=== PATIENT | female | born 1985 | race Caucasian/White ===

== ENCOUNTER → 2018-06-03 11:30 | Outpatient (CLI) | payer MEDICAID, SELFPAY ==
[2018-06-03 10:18] VITALS: BMI 30.7
[2018-06-03 13:15] LABS: ALB/GLOB Ratio 1.1 RATIO (0.9-2.4); AST(SGOT) 24 U/L (15-37); Alanine Aminotransfer ALT/SGPT 35 U/L (13-56); Albumin, Serum 3.9 g/dL (3.2-5.0); Alkaline Phosphatase 60 U/L (45-117); Anion Gap 9 (5-15); BUN 11 mg/dL (7-18); BUN/Creat Ratio 14.4 RATIO (10-20); Calcium,Total 8.5 mg/dL (8.5-10.1); Chloride 104 mmol/L (98-107); Cholesterol 255 mg/dL (200); Creatinine, Serum 0.76 mg/dL (0.55-1.02); EST Glomerular Filtration Rate 93 mL/min (>60); Est Glom Filt Rate - Afr Amer 112 mL/min (>60); Free T3 2.5 pg/mL (2.18-3.98); Globulin 3.5 g/dL (2.2-4.2); Glucose 78 mg/dL (74-106); High Density Lipoprotein 55 mg/dL; Potassium 4.2 mmol/L (3.5-5.1); Protein, Total 7.4 g/dL (6.4-8.2); Sodium Level 140 mmol/L (136-145); Thyroid Stim Hormone (TSH) 2.72 uIU/mL (0.358-3.74); Triglycerides 109 mg/dL; Very Low Density Lipoprotein 22 mg/dL (5-40)
[2018-06-03 13:21] LABS: Hemoglobin A1c 4.8 % (4.2-6.3)
== END ==
PROVIDERS: Family Provider Internal Medicine; PCP Internal Medicine; Referring Provider Nurse Practitioner; Visit Provider Nurse Practitioner
DX: R53.82 Chronic fatigue, unspecified (principal); R53.81 Other malaise; E03.9 Hypothyroidism, unspecified
CPT/HCPCS: 36415; 80053; 80061; 83036; 84439; 84443; 84481

== ENCOUNTER → 2018-06-24 14:26 | Outpatient (CLI) | payer MEDICAID, SELFPAY ==
[2018-06-03 10:18] VITALS: BMI 30.7
--- NOTE | 2018-06-24 14:28 | US_ITS ---
STUDY: THYROID ULTRASOUND REASON FOR EXAM: Female, 32 years old. Difficulty swallowing TECHNIQUE: Ultrasound evaluation of the thyroid was performed with real-time and static polanco-scale imaging. COMPARISON: None. FINDINGS: RIGHT LOBE: The right lobe of the thyroid gland measures 4.2 x 1.2 x 1.4 cm. There is a homogeneous echotexture. There are no demonstrated solid, cystic or complex lesions. LEFT LOBE: The left lobe of the thyroid gland measures 2.9 x 1.2 x 1.1 cm. There is a homogeneous echotexture. There are no demonstrated solid, cystic or complex lesions. ISTHMUS: The isthmus measures 4 mm . The regional lymph nodes are normal. US/Thyroid IMPRESSION: Normal ultrasound examination of the thyroid. Electronically Signed: Radha Watson MD at 2:28 EST Tel , Service support ,
--- OUTSIDE RECORDS SUMMARY | 2018-09-26 06:51 | XMS RPT_ITS ---
:1985 Author Organization [facility] Care Team Providers Name Role Phone YANG ALLAN (BIOMEDICAL EQUIPMENT SPECIALIST) Referring Unavailable BRADY MERLOS Attending Unavailable BRADY MERLOS Attending Unavailable Antonia Crowe Attending Unavailable Antonia Crowe Admitting Unavailable Cristela Buenrostro BIOMEDICAL EQUIPMENT SPECIALIST-C Attending Unavailable Cristela Buenrostro BIOMEDICAL EQUIPMENT SPECIALIST-C Referring Unavailable [place]as, Traci Primary Care Unavailable ASSESSMENT, HEALTH RISK Attending Unavailable [place]as, Traci Primary Care Unavailable Cristela Buenrostro BIOMEDICAL EQUIPMENT SPECIALIST-C Attending Unavailable Talampas, Traci Referring Unavailable Cristela Buenrostro BIOMEDICAL EQUIPMENT SPECIALIST-C Attending Unavailable Cristela Buenrostro BIOMEDICAL EQUIPMENT SPECIALIST-C Referring Unavailable Talampas, Traci Primary Care Unavailable PROBLEMS PROBLEMS DATE TYPE CONDITION / CODE ATTENDING STATUS SOURCE 06/04/2018 Unknown E03.9 - Cristela Buenrostro Active [place] Hypothyroidism, BIOMEDICAL EQUIPMENT SPECIALIST-C Community unspecified / Hospital E03.9(ICD-10) Repository 06/04/2018 Unknown R53.82 - Chronic Cristela Buenrostro Active [place] fatigue, BIOMEDICAL EQUIPMENT SPECIALIST-C Community unspecified / Hospital R53.82(ICD-10) Repository 06/04/2018 Unknown R53.81 - Other Cristela Buenrostro Active [place] malaise / BIOMEDICAL EQUIPMENT SPECIALIST-C Community R53.81(ICD-10) Hospital Repository 11/16/2017 Active Pain in right NA Active [facility] / [facility] M25.521(ICD-10) Repository PROCEDURES PROCEDURES No Procedure Records FoundRESULTS RESULTS RUBELLA IGG [facility] Collected: 07/18/2018 Status: F Source: [place] [employer] 10:53 AM [facility] [place] CODE TESTS RESULT OUT OF RANGE REFERENCE UNITS LAB L509.4010 IU/mL Normal Rubella IgG 126.5 Result Comment: Antibody results Interpretation of Immune Status < 5 IU/ml Presumed Non-immune 5 - < 10 IU/ml Equivocal > or = 10 IU/ml Presumed Immune Performed By: #### L509.4010 #### [facility] [address] [place], [place], [address] [facility] EMP RUBEOLA Collected: 07/18/2018 Status: F Source: [place] 10:53 [facility] [place] CODE TESTS RESULT OUT OF RANGE REFERENCE UNITS LAB L3100.3400 Immune >29.9 AU/mL Normal RUBEOLA 183.0 Result Comment: Negative <25.0 Equivocal 25.0 - 29.9 Positive >29.9 Presence of antibodies to Rubeola is presumptive evidence of immunity except when acute infection is suspected. Performed at: - [facility] [address] [id number] Turntable Operator: Caleb Vuong PhD, Phone: [phone] Performed By: #### L3100.3400, L3400.0000, L3400.1750 #### [facility] (refer to report for specific site) refer to report for address and phone number V-ZOSTER IGG Collected: 07/18/2018 Status: F Source: [place] (IMMUNITY) 10:53 [facility] [place] CODE TESTS RESULT OUT OF RANGE REFERENCE UNITS LAB L3400.0000 Immune >165 index Normal VZOST IgG 1641 31182 Result Comment: Negative <135 Equivocal 135 - 165 Positive >165 A positive result generally indicates exposure to the pathogen or administration of specific immunoglobulins, but it is not indication of active infection or stage of disease. Performed By: #### L3100.3400, L3400.0000, L3400.1750 #### [facility] (refer to report for specific site) refer to report for address and phone number MUMPS ANTIBODY,IGG Collected: 07/18/2018 Status: F Source: [place] 10:53 AM [facility] [place] TYPE CODE TESTS RESULT OUT OF RANGE REFERENCE UNITS LAB L3400.1750 Immune >10.9 AU/mL Normal MUMPS,IgG 13.1 Result Comment: Negative <9.0 Equivocal 9.0 - 10.9 Positive >10.9 A positive result generally indicates past exposure to Mumps virus or previous vaccination. Performed By: #### L3100.3400, L3400.0000, L3400.1750 #### [facility] (refer to report for specific site) refer to report for address and phone number PROGRESS Observed: 06/27/2018 Status: COMPLETED Source: [place] 12:43 PM [facility] REPOSITORY HNO ID: [id number] Author: Eduardo Leon Service: (none) Author Type: Physician Type: Progress Notes Filed: 06/27/2018 12:53 PM Note Text: Patient presents with: Acute Visit: sore throat with cough fever AND congestion x 1 day HPI: Feeling sick since yesterday Positive symptoms: Cough, Sore throat, Fever, Shortness of breath, Chest tightness, Headache, Negative symptoms: OTC: Ibuprofen, Tylenol MEDICATIONS: Current Outpatient Prescriptions: ALPRAZolam (XANAX) 1 mg tablet Take 1 tablet by mouth twice daily as needed. ([facility]) BIOTIN ORAL Take by mouth. celecoxib (CELEBREX) 200 mg capsule Take 1 capsule by mouth once daily. cetirizine (ZYRTEC) 10 mg tablet Take 1 tablet by mouth once daily. DULoxetine (CYMBALTA) 60 mg capsule Take 60 mg by mouth once daily. fluticasone (FLONASE) 50 mcg/actuation nasal spray Use 2 Sprays in each nostril once daily. Rinse mouth after use. hydrocodone-acetaminophen 5-325 mg per tablet Take 1 tablet by mouth three times daily. [facility] (Patient taking differently: Take 1 tablet by mouth once daily. [facility]) lamoTRIgine (LAMICTAL) 150 mg tablet Take 1 tablet by mouth once daily. (replaced trileptal) (Patient taking differently: Take 200 mg by mouth once daily. (replaced trileptal)) levonorgestrel (MIRENA) 20 mcg/24 hr (5 years) IUD Inserted in office levothyroxine (SYNTHROID) 75 mcg tablet Take 1 tablet by mouth once daily. Take an extra 0.5 tablet on Sunday metFORMIN (GLUCOPHAGE) 500 mg tablet Take 1 tablet by mouth twice daily with meals. . mometasone (ELOCON) 0.1 % cream Apply 1 application to affected area once daily. in each ear for itching (Patient taking differently: Apply 1 application to affected area as needed. in each ear for itching) polyethylene glycol 3350 (MIRALAX, GLYCOLAX) 17 gram/dose powder Drink a mix of 1 scoop in 8oz of water/beverage once daily as needed for constipation. albuterol HFA (VENTOLIN HFA) 90 mcg/actuation inhaler Inhale 2 Puffs as instructed every 4 hours as needed for Wheezing/Shortness of Breath. azithromycin (ZITHROMAX Z-AMILCAR) 250 mg tablet Take 2 tablets by mouth day one, then 1 tablet daily until gone. buPROPion XL 150 mg 24 hr tablet Take 1 tablet by mouth once daily. ([facility]) No current facility-administered medications for this visit. ALLERGIES: ALLERGIES Allergen Reactions - Augmentin [Amoxicil* GI Upset - Seasonal Allergies Unknown Cats, dogs, dust mites, molds, trees, grasses, weeds, ragweed. VITALS: BP 118/86 Pulse 106 Temp 37.3 ?C (99.2 ?F) (Left Tympanic) Resp 16 Wt 82.5 kg (181 lb 12.8 oz) SpO2 99% BMI 30.72 kg/m? PHYSICAL EXAM: GEN: mildly ill appearing HEENT: PERRL, EOMI, conjunctiva clear Ears: canals clear, TMs without erythema, bulge, or effusion Sinuses: non-tender frontal sinus, non-tender maxillary sinuses Throat: moist mucous membranes, mild erythema, no exudate Neck: supple, no thyromegaly, no lymphadenopathy HEART: regular rate and rhythm, no murmurs LUNGS: clear to auscultation, no wheezes or crackles, no increased WOB ASSESSMENT/PLAN: 1. Sore throat - ICD9: 462, ICD10: J02.9 - RAPID STREP TEST B/O- negative - suspect viral URI - Discussed supportive care treatment with rest, cold medicine, and analgesia. Eduardo Leon MD CNOV Observed: 06/27/2018 Status: COMPLETED Source: [place] 12:30 PM [facility] REPOSITORY Office Visit (WSTR) ABDIAS BEARD ([id number]) 1985 F Date Time Provider Department 06/27/18 12:30 PM EDUARDO LEON WSTR During your visit today, we recorded the following information about you: Temperature Pulse Respiration Blood pressure 99.2 degrees 106/minute 16/minute 118/86 Weight 82.5 kg Eduardo Leon MD 06/27/2018 12:53 PM Signed Patient presents with: Acute Visit: sore throat with cough fever AND congestion x 1 day HPI: Feeling sick since yesterday Positive symptoms: Cough, Sore throat, Fever, Shortness of breath, Chest tightness, Headache, Negative symptoms: OTC: Ibuprofen, Tylenol MEDICATIONS: Current Outpatient Prescriptions: ALPRAZolam (XANAX) 1 mg tablet Take 1 tablet by mouth twice daily as needed. ([facility]) BIOTIN ORAL Take by mouth. celecoxib (CELEBREX) 200 mg capsule Take 1 capsule by mouth once daily. cetirizine (ZYRTEC) 10 mg tablet Take 1 tablet by mouth once daily. DULoxetine (CYMBALTA) 60 mg capsule Take 60 mg by mouth once daily. fluticasone (FLONASE) 50 mcg/actuation nasal spray Use 2 Sprays in each nostril once daily. Rinse mouth after use. hydrocodone-acetaminophen 5-325 mg per tablet Take 1 tablet by mouth three times daily. [facility] (Patient taking differently: Take 1 tablet by mouth once daily. [facility]) lamoTRIgine (LAMICTAL) 150 mg tablet Take 1 tablet by mouth once daily. (replaced trileptal) (Patient taking differently: Take 200 mg by mouth once daily. (replaced trileptal)) levonorgestrel (MIRENA) 20 mcg/24 hr (5 years) IUD Inserted in office levothyroxine (SYNTHROID) 75 mcg tablet Take 1 tablet by mouth once daily. Take an extra 0.5 tablet on Sunday metFORMIN (GLUCOPHAGE) 500 mg tablet Take 1 tablet by mouth twice daily with meals. . mometasone (ELOCON) 0.1 % cream Apply 1 application to affected area once daily. in each ear for itching (Patient taking differently: Apply 1 application to affected area as needed. in each ear for itching) polyethylene glycol 3350 (MIRALAX, GLYCOLAX) 17 gram/dose powder Drink a mix of 1 scoop in 8oz of water/beverage once daily as needed for constipation. albuterol HFA (VENTOLIN HFA) 90 mcg/actuation inhaler Inhale 2 Puffs as instructed every 4 hours as needed for Wheezing/Shortness of Breath. azithromycin (ZITHROMAX Z-AMILCAR) 250 mg tablet Take 2 tablets by mouth day one, then 1 tablet daily until gone. buPROPion XL 150 mg 24 hr tablet Take 1 tablet by mouth once daily. ([facility]) No current facility-administered medications for this visit. ALLERGIES: ALLERGIES Allergen Reactions - Augmentin [Amoxicil* GI Upset - Seasonal Allergies Unknown Cats, dogs, dust mites, molds, trees, grasses, weeds, ragweed. VITALS: BP 118/86 Pulse 106 Temp 37.3 ?C (99.2 ?F) (Left Tympanic) Resp 16 Wt 82.5 kg (181 lb 12.8 oz) SpO2 99% BMI 30.72 kg/m? PHYSICAL EXAM: GEN: mildly ill appearing HEENT: PERRL, EOMI, conjunctiva clear Ears: canals clear, TMs without erythema, bulge, or effusion Sinuses: non-tender frontal sinus, non-tender maxillary sinuses Throat: moist mucous membranes, mild erythema, no exudate Neck: supple, no thyromegaly, no lymphadenopathy HEART: regular rate and rhythm, no murmurs LUNGS: clear to auscultation, no wheezes or crackles, no increased WOB ASSESSMENT/PLAN: 1. Sore throat - ICD9: 462, ICD10: J02.9 - RAPID STREP TEST B/O- negative - suspect viral URI - Discussed supportive care treatment with rest, cold medicine, and analgesia. Eduardo Leon MD Referring Provider: SELF [200] Allergies As of Date: 06/27/2018 Noted Allergy Reaction AUGMENTIN (AMOXICILLIN-POT CLAVUL*05/21/2014 8 - GI Upset SEASONAL ALLERGIES 01/25/2012 16 - Unknown Comments: Cats, dogs, dust mites, molds, trees, grasses, weeds, ragweed. Date Reviewed: 06/27/2018 Reviewed by: Nenita Rayo Ma - Fully Assessed Reason for Visit: Acute Visit [896] Cmt: sore throat with cough fever AND congestion x 1 day Primary Visit Diagnosis:Sore throat [J02.9] Order(s):RAPID STREP TEST B/O [[id number]] Order #: [id number] Prescriptions as of 06/27/2018 Sig: ALPRAZOLAM 1 MG TABLET Take 1 tablet by mouth twice * BIOTIN ORAL Take by mouth. CELECOXIB 200 MG CAPSULE Take 1 capsule by mouth once * CETIRIZINE 10 MG TABLET Take 1 tablet by mouth once d* DULOXETINE 60 MG CAPSULE,ROSALIO* Take 60 mg by mouth once adrienne* FLUTICASONE 50 MCG/ACTUATION * Use 2 Sprays in each nostril * HYDROCODONE 5 MG-ACETAMINOPHE* Take 1 tablet by mouth three * Patient taking differently: Take 1 tablet by mouth once d* LAMOTRIGINE 150 MG TABLET Take 1 tablet by mouth once d* Patient taking differently: Take 200 mg by mouth once nataliya* LEVONORGESTREL 20 MCG/24 HR (* Inserted in office LEVOTHYROXINE 75 MCG TABLET Take 1 tablet by mouth once d* METFORMIN 500 MG TABLET Take 1 tablet by mouth twice * MOMETASONE 0.1 % TOPICAL CREAM Apply 1 application to affect* Patient taking differently: Apply 1 application to affect* POLYETHYLENE GLYCOL 3350 17 G* Drink a mix of 1 scoop in 8oz* ALBUTEROL SULFATE HFA 90 MCG/* Inhale 2 Puffs as instructed * AZITHROMYCIN 250 MG TABLET Take 2 tablets by mouth day o* BUPROPION XL 150 MG TAB Take 1 tablet by mouth once d* Problem List As Of Date 06/27/2018 Noted Resolved Unspecified Backache [M54.9] INVALID FOR* More... TENSION HEADACHE [G44.209] INVALID FOR* More... Anxiety State, Unspecified [F41.1] INVALID FOR* More... Unspecified sleep apnea [G47.30] INVALID FOR* More... OBESITY NOS [E66.9] INVALID FOR*05/28/2015 More... More... More... More... More... Depressive disorder, not elsewhere classified [*INVALID FOR*04/03/2012 More... More... Unspecified Essential Hypertension [I10] INVALID FOR*08/18/2013 More... More... More... Rectal bleeding [K62.5] 04/13/2016 Bipolar disorder, now depressed [F31.30] INVALID FOR* Goiter [E04.9] INVALID FOR* ASCUS favoring benign [IPX8731] INVALID FOR* Bipolar affective disorder [F31.9] INVALID FOR* Dysmetabolic syndrome [E88.81] INVALID FOR* Exercise-induced asthma [J45.990] Acquired hypothyroidism [E03.9] INVALID FOR* Acne [L70.9] INVALID FOR* PCOS (polycystic ovarian syndrome) [E28.2] INVALID FOR* Encounter Status:Closed by EDUARDO LEON MD on 06/27/18 THYROID Observed: 06/24/2018 Status: F Source: [place] 2:28 PM [facility] [place] [facility] [address] [place] [id number] Thyroid MR#: [id number] Acct: [id number] Name: ABDIAS BEARD Lara Rep #: [id number] : 1985 F 32 From: Radha Watson MD PCP: Traci Smith MD Status: REG CLI Study: Thyroid Date of Exam: 06/24/18 Exam# [id number] Ordering Dr: Cristela BuenrostroC STUDY: THYROID ULTRASOUND REASON FOR EXAM: Female, 32 years old. Difficulty swallowing TECHNIQUE: Ultrasound evaluation of the thyroid was performed with real-time and static polanco-scale imaging. COMPARISON: None. FINDINGS: RIGHT LOBE: The right lobe of the thyroid gland measures 4.2 x 1.2 x 1.4 cm. There is a homogeneous echotexture. There are no demonstrated solid, cystic or complex lesions. LEFT LOBE: The left lobe of the thyroid gland measures 2.9 x 1.2 x 1.1 cm. There is a homogeneous echotexture. There are no demonstrated solid, cystic or complex lesions. ISTHMUS: The isthmus measures 4 mm . The regional lymph nodes are normal. US/Thyroid IMPRESSION: Normal ultrasound examination of the thyroid. Electronically Signed: Radha Watson MD at 2:28 EST Tel , Service support , CC: Cristela Buenrostro NP; Traci Smith MD Sales Operations: Signed OFFICE VISIT REPORT Observed: 06/03/2018 Status: F Source: [place] 12:[address] [place] [address] OFFICE VISIT Date of Service: 06/03/18 MR#: [id number] Acct: [id number] Patient: ABDIAS BEARD Rep #: [id number] : 1985 Provider: Cristela Buenrostro NP Age/Sex: 32/F Location: [facility] [place] Status: Signed Intake Vital Signs06/03/18 Height 5 ft 4.5 in 06/03/18 Weight: 182 lb 06/03/18 Body Mass Index (BMI) 30.7 06/03/18 Blood Pressure 127/88 H 06/03/18 Blood Pressure Location Lt popliteal 06/03/18 Blood Pressure Position Sitting Intake Visit Reasons: Thyroid dysfunction Audit Senior Associate Required: No Accompanied by: Self Allergies No Known Allergies Allergy (Unverified 06/03/18 10:05) Medications celecoxib 200 mg capsule 200 mg PO DAILY 06/03/18 [History Confirmed 06/03/18] duloxetine 60 mg capsule,delayed release 90 mg PO DAILY cap 06/03/18 [History Confirmed 06/03/18] lamotrigine 100 mg tablet 100 mg PO DAILY 06/03/18 [History Confirmed 06/03/18] levothyroxine 75 mcg tablet See Rx Instructions PO .COMPLEX #32 tab 06/03/18 [Rx Confirmed 06/03/18] metformin 500 mg tablet 500 mg PO BID #150 tab 06/03/18 [Rx Confirmed 06/03/18] PFSH Medical History Anxiety and depression (Acute) Back problem (Acute) Hypothyroidism (Acute) Insulin resistance (Acute) Polycystic ovary (Acute) Seasonal allergies (Acute) HTN (hypertension) (Chronic) Surgical History H/O oral surgery (Acute) Family History Unknown Asthma Diabetes Hypertension High cholesterol hormone problems Social History Smoking Status: Never smoker alcohol intake: never substance use type: does not use Questionnaire Depression Screen PHQ-2/9 PHQ-2 Over the last 2 weeks, how often have you been bothered by any of the following problems? 1. Little interest or pleasure in doing things: several days 2. Feeling down, depressed, or hopeless: several days Total score: 2 If score is 2 or greater, continue 3. Trouble falling or staying asleep, or sleeping too much: nearly every day 4. Feeling tired or having little energy: more than half the days 5. Poor appetite or overeating: not at all 6. Feeling bad about yourself - or that you are a failure or have let yourself and your family down: several days 7. Trouble concentrating on things, such as reading the newspaper or watching television: not at all 8. Moving or speaking so slowly that other people could have noticed? - Or the opposite - being so fidgety or restless that you have been moving around a lot more than usual: several days 9. Thoughts that you would be better off or of hurting yourself in some way: not at all Total score: 9 If you checked off any problems, how difficult have these problems made it for you to do your work, take care of things at home, or get along with other people?: somewhat difficult Source: Developed by Drs. Gustabo Kaiser, Jossie Flower, Domo Núñez and colleagues, with an educational lois from [employer]. Scoring: Total Score Depression Severity Action 1-4 Minimal depression No action needed 5-9 Mild depression Repeat PHQ-9 at follow up 10-14 Moderate depression Make tx plan,consider counseling, fup, prescription HPI HPI Details: ABDIAS BEARD, is a 32 F who presents to the office today for consult of hypothyroidism and PCOS. Diagnosed in 2011. Continues on levothyroxine 75 mcg daily. Takes each day. Does not miss any doses nor does she take within 4 hours of calcium, iron, or vitamins. Does admit she has fatigue and malaise. Also treated for PCOS. Ran out of metformin. Reports she finds more severe acne when she is not taking her metformin. Severity, modifying factors, context, and associated signs and symptoms are as follows: Thyroid pain: No Energy: Reduced Sleep: Not awakened refreshed Temp: No intolerance GI: Normal bowel Weight: Flucuates Eyes: No change in vision Memory: unchanged Diaphoresis: Not significant Skin: Dry Hair : Unchanged Neuro: No numbness, tingling or tremors Difficulty swallowing solid foods. At time of visit: -Pt denies symptoms of hypertensive emergency (CP,SOB,SERRANO, or blurred vision) and hypotension(dizziness or lightheadedness) -Pt denies symptoms of hyperthyroidism ( sweaty, confusion, anxiety, tremor, hunger, palpitations) and hyperglycemia ( polydipsia, polyuria) -Pt denies potential medication adverse effect. ROS Const Constitutional: Positive for fatigue; no anorexia, body ache, chills, fever(s), frequent falls, decreased energy, malaise, night sweats, weakness, weight change, sleep problems, abnormal sleep pattern, change in appetite, other, headache(s), snoring or excessive sweating Eyes Eyes: No blurry vision, change in vision, double vision, discharge, dry eyes, bulging eyes, floaters, visual disturbances, eye pain, light sensitivity, spots in vision, tunnel vision or other ENT ENT: No abnormal hearing, ear pain, ear discharge, ear pressure, hearing loss, tinnitus, dizziness/vertigo, balance problems, nosebleed/epistaxis, nasal congestion, nasal obstruction, nose pain, sinus pressure, sinus pain, nasal discharge, post nasal drip, headache(s), facial pain, dental pain, dry mouth, bad breath, hoarseness, lip swelling, mouth lesions, mouth pain, sore throat, tongue swelling, throat swelling, other, difficulty swallowing or neck pain Resp Respiratory: No cough, change in phlegm color, chest congestion, excessive phlegm production, hemoptysis, pain on inspiration, shortness of breath, pain with cough, snoring, stridor, wheezing or other Cardio Cardiology: No chest pain at rest, chest pain with exertion, leg pain with exertion, excessive sweating, shortness of breath, dyspnea on exertion, generalized swelling, irregular heart rhythm, lightheadedness, orthopnea, radiating jaw, neck or arm pain, fast heart rate, slow heart rate, palpitations or other Gastro GI: No abdominal pain, belching, bloating, change in bowel habits, change in stool character, coffee ground emesis, constipation, cramping, diarrhea, heartburn, difficulty swallowing, feeling full early, excessive flatus, incontinent of stools, Vomiting blood/hematemesis, blood in stool, loose stools, Black,tarry stools, nausea/dyspepsia, pain with swallowing, vomiting or other Genitourinary-Female: No difficulty urinating, burning urination, painful urination, urinary incontinence, urinary frequency, urinary urgency, urinary hesitancy, urinary retention, blood in urine, Frequent nighttime urination/ nocturia, post void dribbling, suprapubic fullness, side pain, sexual problems, genital lesions, genital itching, hot flashes, abnormal periods, abnormal vaginal bleeding, absent period, painful periods, light periods, heavy periods, difficulty getting , painful intercourse, pelvic pain, vaginal dryness, vaginal odor, Vaginal Itching or other Musc Musculoskeletal: No abnormal walking, joint pain, back pain, deformity, joint swelling, limited range of motion, loss of height, muscle cramps, muscle weakness, decreased muscle mass, body aches, neck pain, numbness, radiating pain into limb, stiffness, tingling or other Skin Skin: No acne, hair loss, change in hair, nail changes, boil, change in skin color, dry skin, redness, excessive hair growth, yellowing of the skin, lesions, itching, rash, skin pain, skin ulcer, sores, skin swelling, wounds or other Breast Breast: No other Neuro Neurology: No frequent falls, weakness, visual disturbances, abnormal hearing, headache(s), abnormal walking, numbness or tingling Psych Psychiatric: No abnormal sleep pattern, No change in appetite Endo Endocrine: Positive for fatigue; no other or excessive sweating Aller/Imm Allergy/Immunologic: No lip swelling, tongue swelling, throat swelling, wheezing or itchy eyes Exam Const General: comfortable, no acute distress Nutritional Appearance: well nourished Orientation: oriented x3 [facility] Head: normal to inspection, atraumatic Ears: hearing grossly normal bilaterally Nose: external nose normal Face and sinus: normal facial exam Mouth: moist mucous membranes Teeth and gingiva: dentition normal Eyes General: appearance normal, both eyes and all related structures Visual Preciado: normal visual preciado by confrontation Eyelids: eyelids normal Conjunctivae: conjunctivae normal Sclera: sclerae normal Pupils: PERRL Neck Neck: normal visual inspection, full ROM Neck mass: No Thyroid: thyroid normal Resp Effort AND Inspection: normal respiratory effort, able to speak in complete sentences, symmetric chest movement Auscultation: Bilateral: Clear to Auscultation Cardio Rate: regular rate Rhythm: regular rhythm Heart Sounds: S1 normal, S2 normal, no murmurs GI Inspection: normal to inspection Auscultation: normal bowel sounds Palpation: soft, no guarding Musc Musculoskeletal: No muscle weakness Skin General: no rashes or lesions noted Wounds: no wounds Neuro General: oriented x3, moves all extremities Cognition: normal cognition Speech: speech normal Gait: normal gait Motor: muscle tone normal throughout Extrem General: normal capillary refill, full ROM, normal to inspection, no edema Psych Appearance: grossly normal, well kempt Mental Status: mental status grossly normal Mood: congruent mood Affect: normal affect Speech and Movement: speech and movement normal Attitude: cooperative Thought Process: normal Thought Content: normal Judgment: judgment good Assessment AND Plan 1. Hypothyroidism (acquired) E03.9 Plan Will update labs and reorder medication. Due to complaints of swallowing difficulty will order thyroid US. RTC 1 year. Orders Orders: Medications Refilled: 2. Chronic fatigue and malaise R53.82; R53.81 Plan Having some issues will unusual level of fatigue and malaise. Feels diet is good. Sleep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
== END ==
PROVIDERS: Family Provider Internal Medicine; PCP Internal Medicine; Referring Provider Nurse Practitioner; Visit Provider Nurse Practitioner
DX: E03.9 Hypothyroidism, unspecified (principal)
CPT/HCPCS: 76536

== ENCOUNTER 2018-08-08 13:19 | Emergency (ER) | payer MEDICAID, SELFPAY ==
[2018-06-03 10:18] VITALS: BMI 30.7
[2018-08-08 13:21] VITALS: BP 152/113; PULSE 103; RESP 15; TEMP 37; O2SAT 99
--- NOTE | 2018-08-08 13:51 | EKG12_ITS ---
Test Reason : CP Blood Pressure : / mmHG Vent. Rate : 104 BPM Atrial Rate : 104 BPM P-R Int : 140 ms QRS Dur : 074 ms QT Int : 346 ms P-R-T Axes : 037 000 019 degrees QTc Int : 454 ms Sinus tachycardia Otherwise normal ECG Confirmed by ALISIA MACDONALD, KORY ([id number]), industrial editor JAZZ WELLS ([id number] on 08/13/2018 8:35:26 AM Referred By: BLAYNE Confirmed By:KORY CRUMP MD
[2018-08-08 14:15] LABS: Absolute Lymphocyte Count 2.08 X10^3/ul (0.83-4.51); Absolute Neutrophil Count 5.7 X10^3/uL (2.0-7.7); Basophil# 0.04 X10^3/uL; Basophil% 0.5 % (0-1); Eosinophils% 2.4 % (0-5); Hematocrit 43.1 % (37-47); Hemoglobin 14.1 g/dl (12.0-15.0); Lymphocyte # 2.08 X10^3/ul (4.0); Lymphocyte % 24.9 % (19-41); Mean Corp Hgb Conc 32.7 g/gl (32-36); Mean Corpuscular Hgb 30.3 pg (27.0-32.0); Mean Corpuscular Volume 92.5 fL (81-99); Mean Platelet Vol. 9.7 fl (6.2-12.0); Monocyte# 0.38 X10^3/uL; Monocyte% 4.5 % (0-10); Neutrophil # 5.66 X10^3/uL (2.7-7.7); Neutrophil % 67.6 % (47-70); Platelet Count 306 K/mm3 (150-450); RBC Distribution Width CV 11.8 % (11.6-14.6); RBC Distribution Width SD 39.3 fl (35.1-43.9); Red Blood Count 4.66 M/mm3 (4.2-5.4); White Blood Count 8.4 K/mm3 (4.4-11.0)
--- NOTE | 2018-08-08 14:16 | RAD_ITS ---
STUDY: X-RAY CHEST REASON FOR EXAM: Female, 32 years old. Chest pain. TECHNIQUE: Single AP portable view of the chest. COMPARISON: None. FINDINGS: EKG electrodes are seen. The lungs are clear and expanded. There is no demonstrated pleural abnormality. Normal size heart. Normal mediastinum and pamela. Normal visualized pulmonary arteries. Normal visualized aortic arch and descending thoracic aorta. Normal visualized thoracic spine. Normal visualized ribs, clavicles, and shoulders. There is no demonstrated abnormality of the visualized soft tissue structures of the upper abdomen. RAD/Chest 1 View (Portable) IMPRESSION: Normal x-ray examination of the chest. Electronically Signed: Leandro Vincent MD at 14:32 EST , Service support ,
[2018-08-08 14:20] LABS: POSITIVE COUNT NO; POSITIVE DIFFERENTIAL NO; POSITIVE MORPHOLOGY NO
--- NOTE | 2018-08-08 14:24 | ED.DCSUM_ITS ---
- ER Visit Summary Date of Service: 08/08/18 Chief Complaint: [] Chest tightness for 2 days History of Present Illness: The patient is a 32 F [] intermittent chest tightness for 2 days the etiology of which is unclear, no fever no cough she did really does not described as a pain she is able to exert herself and does not cause pain she has no shortness of breath fever cough the pain is intermittent cannot really describe how long it lasts it goes away on its own she is currently not having any symptoms. She does report a history of hypothyroidism pain for which she takes Celebrex and MS Contin and anxiety depression, no history of MO PE or DVT no immobility no history of any cardiopulmonary disorde rs Physical Examination: [] Her vital signs are all within normal range pulse ox is 98% on room air she is afebrile General, no distress resting comfortably HEENT is generally unremarkable The neck is supple no adenopathy Cardiovascular, regular rate and rhythm Lungs, clear bilateral Abdomen, soft nontender Extremities, no clubbing cyanosis or edema Neurologic, awake alert answering questions appropriately moving all 4 extremities Test Results: [] Emergency Department Course and Treatment: [] she looks well with no findings on physical exam she is lying almost flat in the bed without symptoms, her EKG shows a sinus rhythm heart rate 104 no acute injury pattern given her complaints screening labs d-dimer chest x-ray Treatment Plan: [] Patient screening labs include d-dimer are generally unremarkable as is the chest x-ray explained test results to her, the fact that the exact etiology of her symptoms are unclear and she is follow with her outpatient providers she will going obtain that she is currently on MS Contin and other pain management occasions she will continue that consider using antacids proton pump inhibitors etc. return for change in symptoms she is comp with this plan Disposition: [] Home stable Impression: [] Chest tightness etiology unclear This note was generated with [employer] dictation software. It may contain incorrect words, spelling, and punctuation that were not noted in review of the chart prior to signing ED Disposition - Plan for ED Patient: Referrals: Traci Smith MD [Primary Care Provider] -
[2018-08-08 14:30] LABS: Anion Gap 8 (5-15); BUN 11 mg/dL (7-18); BUN/Creat Ratio 15.2 RATIO (10-20); Calcium,Total 8.5 mg/dL (8.5-10.1); Chloride 106 mmol/L (98-107); Creatinine, Serum 0.72 mg/dL (0.55-1.02); EST Glomerular Filtration Rate 99 mL/min (>60); Est Glom Filt Rate - Afr Amer 119 mL/min (>60); Estimated Creatinine Clearance 96.86 ml/min; Glucose 93 mg/dL (74-106); Sodium Level 139 mmol/L (136-145)
[2018-08-08 14:32] LABS: D-Dimer Quantitative (DVT/PE) < 0.27 FEU/ug/m (0.27-0.49)
[2018-08-08 14:39] VITALS: PULSE 99; RESP 16
[2018-08-08] MEDS: Ipratropium/Albuterol Sulfate 3 ML AMPUL.NEB INHALATION (14:39)
[2018-08-08] MEDS: Mag Hydrox/Al Hydrox/Simeth 30 ML UDC PO (14:49)
[2018-08-08 14:51] LABS: BNP,B-Type NATRIURETIC PEPTIDE 11.6 pg/mL (0-100)
--- NOTE | 2018-08-08 15:06 | ED.DEP ---
ED Disposition - Plan for ED Patient: Instructions: ED Chest Pain Atypical Unkn Cause Referrals: Traci Smith MD [Primary Care Provider] - Additional Instructions: Follow-up with all of your outpatient providers return for change in symptoms Consider using antacid type medicines
[2018-08-08 15:19] LABS: Pregnancy, Serum, hCG Quali. NEGATIVE Negative (0-9 Nonpreg)
[2018-08-08 15:53] VITALS: BP 129/90; PULSE 84; RESP 18; O2SAT 99
== END 2018-08-08 15:54 | disposition home or self-care (01) ==
LOC: ED 14:09
PROVIDERS: Emergency Provider Emergency Medicine; Family Provider Internal Medicine; PCP Internal Medicine
DX: R07.89 Other chest pain (principal); E03.9 Hypothyroidism, unspecified; Z79.899 Other long term (current) drug therapy
CPT/HCPCS: 71045; 80048; 83880; 84484; 84703; 85025; 85379; 93005; 94640; 99285; A4216; J2405

== ENCOUNTER → 2021-03-15 | Outpatient (CLI) | payer OTHER, MEDICAID, SELFPAY ==
[2021-03-15 12:18] LABS: Probe Check BNP
== END | disposition home or self-care (01) ==
PROVIDERS: PCP Internal Medicine; Visit Provider Otolaryngology Otolaryngology/Facial Plastic Surgery
DX: Z03.818 Encounter for observation for suspected exposure to other biological agents ruled out (principal); Z11.59 Encounter for screening for other viral diseases
CPT/HCPCS: 87635; U0005; U0003

== ENCOUNTER → 2021-03-22 | Outpatient (CLI) | payer OTHER, MEDICAID, SELFPAY | END | disposition home or self-care (01) | LOC: LABSPEC 16:43 | PROVIDERS: PCP Internal Medicine; Referring Provider Otolaryngology; Visit Provider Otolaryngology | DX: J02.9 Acute pharyngitis, unspecified (principal) | CPT/HCPCS: 87070 ==

== ENCOUNTER → 2021-03-24 | Outpatient (CLI) | payer OTHER, MEDICAID, SELFPAY | END | disposition home or self-care (01) | LOC: LABSPEC 03-25 11:37 | PROVIDERS: PCP Internal Medicine; Referring Provider Otolaryngology; Visit Provider Otolaryngology | DX: Z11.59 Encounter for screening for other viral diseases (principal); Z03.818 Encounter for observation for suspected exposure to other biological agents ruled out | CPT/HCPCS: 87635; U0005; U0003 ==

== ENCOUNTER 2023-02-04 10:49 | Emergency (ER) | payer MEDICAID, SELFPAY ==
[2023-02-04 10:51] VITALS: BP 124/96; PULSE 102; RESP 16; TEMP 35.9; O2SAT 98; BMI 24.2
--- NOTE | 2023-02-04 10:54 | EKG12_ITS ---
Test Reason : SYNCOPE Blood Pressure : / mmHG Vent. Rate : 102 BPM Atrial Rate : 102 BPM P-R Int : 120 ms QRS Dur : 074 ms QT Int : 328 ms P-R-T Axes : 039 045 050 degrees QTc Int : 427 ms Sinus tachycardia Otherwise normal ECG Confirmed by CYRIL MACDONALD, KARMEN ([id number]), writer editor ESTHER RUSHING ([id number]) on 02/08/2023 8:35:21 AM Referred By: Confirmed By:NEELAM NAM MD
--- NOTE | 2023-02-04 10:54 | EX.ED.DYSGE1 ---
HPI History of Present Illness Chief Complaint: Syncope [facility] Medical History (Updated 02/04/23 @ 11:[address] Luis Reilly, DO) Anxiety and depression Back problem HTN (hypertension) Hypothyroidism Insulin resistance Polycystic ovary Seasonal allergies Home Medications celecoxib 200 mg capsule (Celebrex) 200 mg PO DAILY 06/03/18 [History Last Taken Unknown] duloxetine 60 mg capsule,delayed release (Cymbalta) 90 mg PO DAILY 06/03/18 [History Last Taken Unknown] lamotrigine 100 mg tablet 100 mg PO DAILY 06/03/18 [History Last Taken Unknown] levothyroxine 75 mcg tablet See Rx Instructions PO .COMPLEX #32 tabs 06/03/18 [Rx Last Taken Unknown] metformin 500 mg tablet 500 mg PO .COMPLEX #150 tabs 06/26/18 [Rx Last Taken Unknown] alprazolam 1 mg tablet (Xanax) 1 mg PO BID PRN PRN Anxiety 08/08/18 [History Last Taken Unknown] morphine 15 mg tablet,extended release 15 mg PO TID 08/08/18 [History Last Taken Unknown] tizanidine 4 mg capsule (Zanaflex) 4 mg PO QHS 08/08/18 [History Last Taken Unknown] Allergy/AdvReac Type Severity Reaction Status Date / Time No Known Allergies Allergy Unverified 08/08/18 13:24 Family History (Updated 06/03/18 @ 10:09 by Stacey Duenas) Unknown Asthma Diabetes Hypertension High cholesterol hormone problems Surgical History (Updated 06/03/18 @ 10:08 by Stacey Duenas) H/O oral surgery Social History (Updated 01/20/19 @ 14:33 by Henry STEPHEN, PA) Smoking Status: Never smoker alcohol intake: never substance use type: does not use EXAM Physical Exam Const Vital Signs: 02/04/23 10:51 Temperature 96.7 F L Temperature Source Temporal Pulse Rate 102 H Respiratory Rate 16 Blood Pressure 124/96 H Blood Pressure Mean 105 Pulse Ox 98 Oxygen Delivery Method Room Air MDM MDM MDM Narrative Medical decision making narrative: HISTORY OF PRESENT ILLNESS: 37-year-old female here with concern for loss of consciousness. She states she passed out last Sunday after seeing a laceration on her finger. She notes she then felt hot, warm dizzy and lost consciousness. Does note hitting her neck on a counter. This occurred 4 days ago. Denies any focal weakness or numbness. Denies any vomiting. Denies being intoxicated at the time of fall. Denies any tongue biting or convulsions. Denies any bowel or bladder incontinence. She does note neck pain. The patient denies recent surgery in the last 4 weeks or immobilization in the last 3 days, denies previous diagnosis of DVT or PE, hemoptysis, unilateral leg swelling or malignancy with treatment the last 6 months. No estrogen use noted. Patient denies sudden onset of pain, no tearing sensation, no migratory symptoms, no new numbness, weakness or loss of sensation. Patient denies family history or personal history of Marfan syndrome or Rubi-Danlos Patient denies abdominal pain. Patient denies headache. Patient denies sudden onset or thunderclap headache, denies maximal intensity within 1 minute, vomiting, neck pain or stiffness, changes in vision, fever, history malignancy, syncope, seizures. No volume loss noted. No bleeding diathesis noted. REVIEW OF SYSTEMS: Pertinent positives: Loss of consciousness, neck pain after fall Pertinent negatives: Headache, chest pain, abdominal pain, vaginal bleeding, focal loss sensation weakness or numbness. PHYSICAL EXAM: Nursing triage notes reviewed, Vital signs reviewed Constitutional: please see mdm HENT: MMM Eyes: Pupils equal round and reactive to light, Extraocular muscles intact Neck: No stridor, no JVD, full neck ROM, no cervical spine step-offs deformities, TTP over left trapezius. Lungs: Clear to auscultation, No wheezing or rales. No increased work of breathing, no conversational dyspnea, no accessory muscle use, no nasal flaring. No respiratory distress noted Heart: Regular rate and rhythm, No murmurs, No rubs and No gallops, 2+ distal pulses (radial, femoral, posterior tibial) in all extremities Abdomen: Soft, there is no tenderness, rigidity, rebound or guarding, no obvious peritoneal signs, no palpable pulsatile abdominal masses, no auscultated abdominal bruit : No CVAT Extremities: No edema Neuro: Alert and oriented x3, neuro exam at baseline, cranial nerves II through XII are intact. No pain with extraocular muscle movement. There is negative test of skew. Normal speech. 5 of 5 strength in upper and lower extremities in flexion extension. Intact sensation to light touch in upper and lower extremity dermatomes. No truncal or extremity ataxia. No dysdiadochokinesia. Normal gait. 2+ reflexes. No meningeal signs. Negative Babinski. NIH of 0. Intact 5/5 strength with ok sign (median), intact finger abduction (ulnar) intact wrist extension (radial n). Intact sensation in the radial, ulnar, and median nerve distributions. Skin: No rash or lesions noted MEDICAL DECISION MAKING: Chief Complaint: Loss of consciousness External records reviewed:No recent cardiac catheterizations, stress test, echocardiogram and Holter monitor as noted in her chart Factors affecting care: Anxiety, hypothyroidism Social determinants of health: Never smoker History obtained from others: none Consults: none ALL IMAGES (IF OBTAINED) HAVE BEEN PERSONALLY REVIEWED AND INTERPRETED BY MYSELF. EKG with normal sinus rhythm, normal axis, normal intervals, no ST or T wave changes to suggest ischemia. No evidence of WPW, Brugada, ARVD. MDM Narrative: Patient was hemodynamically stable, afebrile, nontoxic-appearing. No focal neurologic deficits. No cervical spine step-offs or deformities. Heart and lung exam was unremarkable. Pulse exam was intact. There is no focal neurologic deficit present, no midline spinal tenderness, no altered level conscious, no intoxication, no distracting injury. Next criteria suggest no need for advanced imaging of the cervical spine. I considered the following differential diagnosis: Vasovagal syncope, arrhythmia, myocardial ischemia, electrolyte abnormality severe anemia, subarachnoid hemorrhage, ectopic , pulmonary embolism, aortic dissection, ruptured AAA EKG showed normal sinus rhythm, normal axis, normal intervals, no STEMI, no signs of dye PW, ARVD or Brugada syndrome. Patient had no bleeding diathesis. No report of volume loss. She had no reported family history of cardiovascular issues. Her syncope was likely vasovagal given she saw blood and had pain and felt warm dizzy. She had no signs or history to suggest seizure with no bowel or bladder incontinence or tongue biting. Patient is appropriate for discharge home with close outpatient follow-up for outpatient echocardiogram and potentially Holter monitor. The patient and/or family, caregivers express understanding. The patient and/or family, caregivers agrees with the plan. Shared decision making: I will have a discussion with the patient and or visitors regarding risk/benefits of further testing or admission. They will be made aware of of the risk/benefits inherent in this decision they will be given the opportunity to voice understanding. Total critical care time today provided was at least 0 minutes. This excludes separately billable procedures. Critical care time (if documented) is secondary to the patient having high probability of clinically significant/life threatening deterioration in the patient's condition which required my urgent intervention. Discharge Plan Triage Chief Complaint: Syncope ED Provider: Luis Reilly Dx/Rx/DC Orders Clinical Impression: Vasovagal syncope, Neck strain Prescriptions: No Action duloxetine [Cymbalta] 60 mg capsule,delayed release(DR/EC) 90 mg PO DAILY celecoxib [Celebrex] 200 mg capsule 200 mg PO DAILY lamotrigine 100 mg tablet 100 mg PO DAILY levothyroxine 75 mcg tablet See Rx Instructions PO .COMPLEX Qty: 32 11RF Dose Instruction: 1 tab daily for 6 days and on 7th day take 1.5 tab PO ; Rx Instructions: 1 tab daily for 6 days and on 7th day take 1.5 tab PO ; metformin 500 mg tablet 500 mg PO .COMPLEX Qty: 150 6RF Rx Instructions: Take one tablet in am and take 2 tablets in pm; alprazolam [Xanax] 1 MG tablet 1 mg PO BID PRN PRN (Reason: Anxiety) morphine 15 MG tablet 15 mg PO TID tizanidine [Zanaflex] 4 MG capsule 4 mg PO QHS Primary Care Provider: Traci Smith Referrals: Traci Smith MD [Primary Care Provider] - Activity Restrictions/Additional Instructions: Thank you for trusting us with your care today! Please take Tylenol (2 pills, 650 mg), ibuprofen (2 pills, 400 mg) every 6 hours as needed for pain and fever control. Please return to the emergency department if your symptoms change or worsen. Specifically if you lose consciousness, develop chest pain, if you feel your heart racing, you short of breath, you develop focal numbness or weakness. Please follow with your primary care physician for further outpatient evaluation and management. Disposition Disposition: Home, Self Care
[2023-02-04 11:32] VITALS: PULSE 85; RESP 18; O2SAT 98
== END 2023-02-04 11:41 | disposition home or self-care (01) ==
LOC: ED 11:38
PROVIDERS: Emergency Provider Emergency Medicine; PCP Internal Medicine; Visit Provider Emergency Medicine
DX: R55 Syncope and collapse (principal); E03.9 Hypothyroidism, unspecified; S16.1XXA Strain of muscle, fascia and tendon at neck level, initial encounter; I10 Essential (primary) hypertension; F41.8 Other specified anxiety disorders; W18.39XA Other fall on same level, initial encounter
CPT/HCPCS: 93005; 99282

== ENCOUNTER 2024-06-12 10:28 | Emergency (ER) | payer OTHER, SELFPAY ==
[2024-06-12 10:28] VITALS: BP 143/83; PULSE 94; RESP 18; TEMP 36.3; O2SAT 98; BMI 29.8
--- NOTE | 2024-06-12 10:43 | CT_ITS ---
STUDY: CT CERVICAL SPINE WITHOUT CONTRAST REASON FOR EXAM: Female, 38 years old. Neck pain hx of ACDF RADIATION DOSAGE (If Supplied By Facility): CTDIvol = ( 19.09 ) mGy, DLP = ( 411.10 ) mGycm TECHNIQUE: High resolution transaxial imaging was performed without contrast material. Sagittal and coronal images were reconstructed. Individualized dose optimization techniques were used for this CT. COMPARISON: None FINDINGS: Normal craniovertebral junction. Normal anterior atlantoaxial articulation. Normal odontoid process. There is straightening of the normal cervical lordosis. Normal vertebral bodies and posterior osseous elements. C2-3: Normal endplates. Normal disc height and morphology. Normal central canal and intervertebral neuroforamina. C3-4: Normal endplates. Normal disc height and morphology. Normal central canal and intervertebral neuroforamina. C4-5: Mild degree of anterior spondylolisthesis. C5-6: The patient is status post anterior fusion and prosthetic disc placement. C6-7: Normal endplates. Normal disc height and morphology. Normal central canal and intervertebral neuroforamina. C7-T1: Normal endplates. Normal disc height and morphology. Normal central canal and intervertebral neuroforamina. Normal visualized soft tissue structures. CT/Spine Cervical without Contras IMPRESSION: Status post anterior fusion and prosthetic disc placement at the C5-C6 level. Mild degree of anterior spondylolisthesis at the C4-C5 level. Electronically Signed: Leandro Vincent MD at 12:01 EST ,
--- NOTE | 2024-06-12 10:45 | EX.ED.DYSGE1 ---
HPI History of Present Illness Chief Complaint: Other, Pain/Inj Narrative Narrative: Patient is a 38-year-old female with past medical history hypertension, hypothyroidism, anxiety, depression, history of ACDF last May who presents to the emergency department the chief complaint of neck pain. Patient states that she follows with pain management and has been given tizanidine, gabapentin she is on also taking Tylenol ibuprofen without any relief. Patient denies any injuries to her neck to cause a flare. States that this pain has been going on for a some amount of time however today she noted that it was worse. 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 Patient denies any history of IV drug use, denies any alcohol use. Patient states that she has an appointment with her surgeon tomorrow at [facility] who did the surgery. She states that she has a MRI however that she is waiting for them to call to schedule this. [facility] Medical History (Updated 06/12/24 @ 12:[address] Chad Schafer, ) Bipolar 1 disorder Insulin resistance Hypothyroidism Polycystic ovary HTN (hypertension) Back problem Anxiety and depression Seasonal allergies Home Medications ?Medication ?Instructions ?Recorded ?Last Taken ?Type celecoxib 200 mg capsule (Celebrex) 200 mg PO DAILY 06/03/18 Unknown History lamotrigine 100 mg tablet 100 mg PO DAILY 06/03/18 Unknown History alprazolam 1 mg tablet (Xanax) 1 mg PO BID PRN PRN Anxiety 08/08/18 Unknown History desvenlafaxine 50 mg 50 mg PO QDAY 05/12/24 Unknown History tablet,extended release 24 hr duloxetine 60 mg capsule,delayed 60 mg PO DAILY 05/12/24 Unknown History release (Cymbalta) gabapentin 300 mg capsule 300 mg PO TID 05/12/24 Unknown History lamotrigine 25 mg tablet (Lamictal) 25 mg PO QDAY 05/12/24 Unknown History metaxalone 800 mg tablet 800 mg PO TID PRN muscle pain #90 05/12/24 Unknown Rx tabs tizanidine 4 mg tablet 4 mg PO QHS PRN insomnia #30 tabs 05/12/24 Unknown Rx Allergy/AdvReac Type Severity Reaction Status Date / Time No Known Allergies Allergy Verified 06/12/24 10:32 Family History Unknown Asthma Diabetes Hypertension High cholesterol hormone problems Surgical History (Updated 06/12/24 @ 11:16 by Elis Paredes) Hx of neck surgery H/O oral surgery Social History Smoking Status: Never smoker alcohol intake: never substance use type: does not use ROS ROS ED ROS Narrative Constitutional: Denies any fevers, chills, headaches malaise, dizziness Cardiovascular: Denies chest pain or palpitations Respiratory: Denies shortness of breath Abdomen: Complains of nausea from the pain denies vomiting or diarrhea and denies abdominal pain : Denies any urinary symptoms Neurological: Denies numbness, weakness, tingling Musculoskeletal: Complains of neck pain as noted above Skin: Denies rashes or lesions EXAM Physical Exam Narrative Exam Narrative: General: Patient lying in bed rest comfortably did not appear to be in acute distress Head: Atraumatic, normocephalic Eyes: PERRL bilateral, EOMI bilateral, no conjunctival injection noted Neck: Soft, supple, trachea midline, patient has full range of motion of her neck she states that she has some pain with attempting to look upward but is able to still do so Cardiovascular: Regular rate and rhythm no murmurs gallops rubs noted Respiratory: Clear to auscultation bilaterally Abdomen: Soft, nondistended, no tenderness palpation, bowel sounds present x 4 Musculoskeletal: No tenderness palpation the midline of the cervical, thoracolumbar spine patient has tenderness palpation over the trapezius regions bilaterally Extremities: +5/5 strength noted in the bilateral upper and lower extremities, radial pulses +2/4 in the bilateral extremities, patient is able to give me the okay sign, thumbs up sign and oppose her thumb to her pinky is bilaterally with any difficulty Neurological: Patient following commands knew that she was at [facility] years 2023. Patient has sensation grossly intact in the median, ulnar, radial and axillary nerve distribution bilaterally Skin: Warm, dry, intact, no rashes or lesions noted Const Vital Signs: 06/12/24 10:28 06/12/24 11:16 Temperature 97.4 F L Temperature Source Oral Pulse Rate 94 Respiratory Rate 18 Respiratory Effort Normal Respiratory Pattern Normal Blood Pressure 143/83 H Blood Pressure Mean 103 Pulse Ox 98 Oxygen Delivery Method Room Air MDM MDM MDM Narrative Medical decision making narrative: Patient is a 38-year-old female who presents to the emerged part with chief complaint of neck pain. Patient will have a workup performed here on the differential diagnose includes but not limited to cervical strain, hardware failure. Once workup is obtained reviewed she will be reevaluated. Patient given morphine Zofran. Patient CBC reviewed and showed no evidence of leukocytosis white blood count normal 8.2, hemoglobin 13.4, plate count normal at 395. Patient sodium normal at 138, potassium normal 4.1, creatinine normal at 0.80. Patient's CT cervical spine was reviewed that showed status post anterior fusion and prosthetic displacement at the C5-C6 level. Mild degree of anterior spondylolisthesis at C4-C5 level. I discussed the results with the patient and gave a hard copy of this and advised her to take it this to her appointment tomorrow with her surgeon. She was advised to return with worsening symptoms or other concerns. Patient is in pain management therefore will not prescribe narcotics out of the ER I advised her to take Tylenol ibuprofen [id number] every 3 hours when rotating the 2 and to continue her muscle relaxer as well as her gabapentin as prescribed. She is agreeable this plan as well as significant other at bedside all question concerns answered at bedside she was discharged home in stable condition. Lab Data Labs: Laboratory Results - last 24 hr 06/12/24 11:00 WBC 8.2 RBC 4.39 Hgb 13.4 Hct 40.1 MCV 91.3 MCH 30.5 MCHC 33.4 RDW Std Deviation 40.1 RDW Coeff of Cyn 12.0 Plt Count 295 MPV 8.7 Immature Gran % (Auto) 0.400 Neut % (Auto) 63.6 Lymph % (Auto) 23.7 Carver % (Auto) 7.1 Eos % (Auto) 4.5 Baso % (Auto) 0.7 Absolute Neuts (auto) 5.2 Absolute Lymphs (auto) 1.93 Nucleated RBC % 0 Sodium 138 Potassium 4.1 Chloride 110 H Carbon Dioxide 23.0 Anion Gap 5 BUN 17 Creatinine 0.80 Estim Creat Clear Calc 96.92 Est GFR (MDRD) Af Amer 103 Est GFR (MDRD) Non-Af 85 BUN/Creatinine Ratio 21.2 H Glucose 114 H Calcium 8.4 L Radiography Diagnostic Testing: Clinical Impression(s) from Imaging Studies Cervical Spine CT 06/12/24 10:43 IMPRESSION: Status post anterior fusion and prosthetic disc placement at the C5-C6 level. Mild degree of anterior spondylolisthesis at the C4-C5 level. Electronically Signed: Leandro Vincent MD at 12:01 EST , Discharge Plan Triage Chief Complaint: Other, Pain/Inj ED Provider: Chad Schafer Dx/Rx/DC Orders Clinical Impression: Neck pain Prescriptions: No Action celecoxib [Celebrex] 200 mg capsule 200 mg PO DAILY lamotrigine 100 mg tablet 100 mg PO DAILY duloxetine [Cymbalta] 60 mg capsule,delayed release(DR/EC) 60 mg PO DAILY lamotrigine [Lamictal] 25 mg tablet 25 mg PO QDAY gabapentin 300 mg capsule 300 mg PO TID desvenlafaxine 50 mg tablet extended release 24 hr 50 mg PO QDAY metaxalone 800 mg tablet 800 mg PO TID PRN (Reason: muscle pain) Qty: 90 4RF tizanidine 4 mg tablet 4 mg PO QHS PRN (Reason: insomnia) Qty: 30 4RF alprazolam [Xanax] 1 MG tablet 1 mg PO BID PRN PRN (Reason: Anxiety) Stand Alone Forms: ED Work / School Excuse Primary Care Provider: Donald Lieberman Referrals: Traci Smith MD [Med Staff - [employer]] - Activity Restrictions/Additional Instructions: Follow-up with your physician at your scheduled appointment tomorrow. Rotate Tylenol and ibuprofen [id number] as we discussed here taking something every 3 hours when rotating the two. Continue your gabapentin and your muscle laxer as prescribed. Follow-up your primary care physician. Take the hard copy of the CT result with you to your appointment. Print Language: Hungarian Disposition Disposition: Home, Self Care
[2024-06-12 11:07] LABS: Absolute Lymphocyte Count 1.93 X10^3/uL (0.83-4.51); Absolute Neutrophil Count 5.2 X10^3/uL (2.0-7.7); Basophil# 0.06 X10^3/uL; Basophil% 0.7 % (0-1); Eosinophil# 0.37 X10^3/uL; Eosinophils% 4.5 % (0-5); Hematocrit 40.1 % (37-47); Hemoglobin 13.4 g/dL (12.0-15.0); Lymphocyte # 1.93 X10^3/ul (0.83-4.51); Lymphocyte % 23.7 % (19-41); Mean Corp Hgb Conc 33.4 g/dL (32-36); Mean Corpuscular Hgb 30.5 pg (27.0-32.0); Mean Corpuscular Volume 91.3 fL (81-99); Mean Platelet Vol. 8.7 fl (6.2-12.0); Monocyte# 0.58 X10^3/uL; Monocyte% 7.1 % (0-10); NRBC Flagged by Analyzer 0 % (0-5); Neutrophil # 5.19 X10^3/uL (2.7-7.7); Neutrophil % 63.6 % (47-70); Platelet Count 295 K/mm3 (150-450); RBC Distribution Width SD 40.1 fl (35.1-43.9); Red Blood Count 4.39 M/mm3 (4.2-5.4); White Blood Count 8.2 K/mm3 (4.4-11.0)
[2024-06-12] MEDS: Ondansetron 4 MG/2 ML Vial IV (11:08)
[2024-06-12] MEDS: Morphine 4 MG/ML Syringe IV (11:08)
[2024-06-12 11:22] LABS: Anion Gap 5 (5-15); BUN 17 mg/dL (7-18); BUN/Creat Ratio 21.2 RATIO (10-20); Calcium,Total 8.4 mg/dL (8.5-10.1); Chloride 110 mmol/L (98-107); EST Glomerular Filtration Rate 85 mL/min (>60); Est Glom Filt Rate - Afr Amer 103 mL/min (>60); Estimated Creatinine Clearance 96.92 ml/min; Glucose 114 mg/dL (74-106); Potassium 4.1 mmol/L (3.5-5.1); Sodium Level 138 mmol/L (136-145)
[2024-06-12 12:40] VITALS: BP 132/86; PULSE 81; RESP 16; O2SAT 99
== END 2024-06-12 12:42 | disposition home or self-care (01) ==
PROVIDERS: Emergency Provider Emergency Medicine; PCP Family Medicine; Visit Provider Emergency Medicine
DX: M54.2 Cervicalgia (principal); F31.9 Bipolar disorder, unspecified; I10 Essential (primary) hypertension; F41.8 Other specified anxiety disorders; Z79.899 Other long term (current) drug therapy
CPT/HCPCS: 72125; 80048; 85025; 96374; 96375; 99283; A4216; J2405

== ENCOUNTER → 2024-06-22 | Outpatient (CLI) | payer OTHER, SELFPAY ==
--- NOTE | 2024-06-22 10:16 | MRI_ITS ---
STUDY: MRI BRAIN WITH AND WITHOUT CONTRAST REASON FOR EXAM: Female, 38 years old. post concussive synd; blurred vision; memory loss TECHNIQUE: Standardized multiplanar fat and water weighted pulse sequences were obtained. IV 15cc clariscan was administered for the contrast portion of the examination. COMPARISON: CT 02/22/2010 FINDINGS: Normal size of the ventricles and extra-axial spaces for the patient''s age. Normal white matter tracts of the supratentorial brain. There is no evidence for recent intracranial ischemia or other cause of cytotoxic edema on diffusion weighted imaging (DWI). Normal T2* images of the brain without demonstrated susceptibility artifact. There is no demonstrated hemosiderin stain. Normal bilateral basal ganglia. Normal thalami. There is no extra-axial fluid accumulation. Normal flow voids within the major intracranial circulation suggesting patency by spin echo criteria. Normal venous enhancement. There is no enhancing intra-axial or extra-axial abnormality. Normal sella turcica, pituitary gland, infundibular stalk, optic chiasm and hypothalamus. Normal tectal plate and pineal gland. Normal midbrain, david and medulla. Normal cerebellum. Normal basal cisterns. Normal bilateral temporal bones. Normal bilateral internal auditory canals. No demonstrated orbital abnormality, within the constraints of a routine brain study. Normal visualized paranasal sinuses. Normal calvarium and skull base. Normal visualized soft tissue structures. Normal visualized upper cervical spine. MRI/Brain W/WO Contrast IMPRESSION: Normal unenhanced and enhanced MRI of the brain. Electronically Signed: Rigoberto Martines MD at 10:28 EST ,
--- NOTE | 2024-06-22 10:19 | MRI_ITS ---
STUDY: MRI CERVICAL SPINE WITHOUT CONTRAST REASON FOR EXAM: Female, 38 years old. RADICULOPATHY TECHNIQUE: Standardized fat and water weighted pulse sequences were obtained in the sagittal and axial planes. COMPARISON: CT 06/12/2024 FINDINGS: Normal foramen magnum and brainstem-cervical cord junction. Normal craniovertebral junction. Normal anterior atlantoaxial articulation. Normal odontoid process. There is straightening of the normal cervical lordosis. Normal vertebral bodies and posterior osseous elements. C2-3: Normal endplates. Normal disc height, signal and morphology. Normal central canal and intervertebral neural foramina. C3-4: Normal endplates. Normal disc height, signal and morphology. Normal central canal and intervertebral neural foramina. C4-5: Normal endplates. Normal disc height, signal and morphology. Normal central canal and intervertebral neural foramina. C5-6: Status post anterior cervical discectomy and fusion with anatomic alignment with no spinal stenosis or neural foraminal stenosis. C6-7: Moderate broad disc osteophyte complex asymmetric to the left produces moderate spinal stenosis with abutment of the left hemicord but no neural foraminal stenosis. C7-T1: Normal endplates. Normal disc height, signal and morphology. Normal central canal and intervertebral neural foramina. Normal cervical cord. Normal visualized soft tissue structures. MRI/Spine Cervical (Routine) IMPRESSION: Status post anterior cervical discectomy and fusion at C5/C6 with degenerative disc disease at C6-C7. Electronically Signed: Rigoberto Martines MD at 10:31 EST ,
== END | disposition home or self-care (01) ==
PROVIDERS: PCP Family Medicine; Referring Provider Psychiatry & Neurology Neurology; Visit Provider Psychiatry & Neurology Neurology
DX: F07.81 Postconcussional syndrome (principal); H53.8 Other visual disturbances
CPT/HCPCS: 70553; 72141; A9575

== ENCOUNTER 2024-07-30 09:30 | Emergency (ER) | payer OTHER, SELFPAY ==
[2024-07-30 09:31] VITALS: BP 140/90; PULSE 95; RESP 16; TEMP 36.6; O2SAT 99; BMI 29.2
--- NOTE | 2024-07-30 09:39 | EDS_ITS ---
HPI History of Present Illness Chief Complaint: Other, Pain/Inj Informant: patient Onset/Context/Timing Onset: Month(s) Context: Gradual Onset Timing: Continuous Quality: Sharp Location: Neck Worsened by: Nothing Relieved by: Nothing Narrative Narrative: Patient presents with neck pain that has been getting worse over the past few months. Patient states the pain is severe today. Patient states it is constant. Patient describes her pain as sharp. Patient states nothing makes it worse and nothing makes it better. Patient was to some tingling into her arms. Patient denies any weakness. Patient states she had a recent CT scan and MRI of her cervical spine which showed some disc herniations at C6 and C7. The patient states she is compliant with Dr. Bro from orthopedic spine to follow-up with this. Patient denies any bowel or bladder changes. [facility] Medical History Cervical spondylolysis Cervical spinal stenosis DDD (degenerative disc disease), cervical Adjacent segment disease Cervicogenic headache Bipolar 1 disorder Insulin resistance Hypothyroidism Polycystic ovary HTN (hypertension) Back problem Anxiety and depression Seasonal allergies Home Medications ?Medication ?Instructions ?Recorded ?Last Taken ?Type alprazolam 1 mg tablet (Xanax) 1 mg PO BID PRN PRN Anxiety 08/08/18 Unknown History desvenlafaxine 50 mg 50 mg PO QDAY 05/12/24 Unknown History tablet,extended release 24 hr gabapentin 300 mg capsule 300 mg PO TID 05/12/24 Unknown History lamotrigine 25 mg tablet (Lamictal) 25 mg PO QDAY 05/12/24 Unknown History tizanidine 4 mg tablet 4 mg PO QHS PRN insomnia #30 tabs 05/12/24 Unknown Rx meloxicam 7.5 mg tablet 7.5 mg PO BID PRN 07/22/24 Unknown History hydrocodone-acetaminophen 5-325mg 1 tab PO Q6H PRN PRN Pain 3 days 07/30/24 Unknown Rx 5mg-325mg #10 TABLETS Allergy/AdvReac Type Severity Reaction Status Date / Time No Known Allergies Allergy Verified 07/30/24 09:33 Family History Unknown Asthma Diabetes Hypertension High cholesterol hormone problems Surgical History History of fusion of cervical spine Hx of neck surgery H/O oral surgery Social History Smoking Status: Never smoker alcohol intake: never substance use type: does not use ROS ROS ED Constitutional Constitutional ED: Denies chills or fever(s) Eyes Eyes: Denies blurry vision or change in vision ENT ENT ED: Denies rhinorrhea or sore throat Cardiovascular Cardiovascular: Denies chest pain or palpitations Respiratory/Chest Respiratory/Chest: Denies cough or dyspnea Gastrointestinal Gastrointestinal: Reports nausea; Denies vomiting Genitourinary Genitourinary ED: Denies dysuria or hematuria Musculoskeletal Musculoskeletal: Reports back pain and neck pain Integumentary Denies abscess or rash Neurologic Neurologic: Reports headache(s); Denies weakness Allergic/Immunologic Allergic/Immunologic ED: Denies mouth swelling or urticaria EXAM Physical Exam Const Vital Signs: 07/30/24 09:31 07/30/24 09:39 Temperature 97.8 F Temperature Source Oral Pulse Rate 95 Respiratory Rate 16 Respiratory Effort Normal Non-Labored Respiratory Pattern Normal Blood Pressure 140/90 H Blood Pressure Mean 106 Pulse Ox 99 Oxygen Delivery Method Room Air Positive well nourished and well developed General Appearance ED: well developed and NAD HEENT Reports moist mucous membranes Neck Neck Narrative: There is tenderness over the cervical spine and paraspinal muscles. There is no bony crepitance or step-off noted. Range of motion was limited in all motions of the cervical spine secondary to pain. Strength is 5/5 bilateral in the upper and lower extremities. There are no sensory deficits noted. Deep tendon reflexes are 1+/4 bilaterally in the upper and lower extremities. Extremity normal to inspection Neuro oriented x3, CN's II-XII intact bilaterally and no sensory deficits noted Sensorium / Orientation: alert Motor Exam: strength 5/5 throughout Psych mental status grossly normal MDM MDM MDM Narrative Medical decision making narrative: Since the patient had recent CT scan and MRI, I do not feel that any further imaging is necessary at this time. Patient is agreeable with this. Patient was given an injection of morphine here. Patient had some relief with this. Patient was given a repeat dose of morphine. Patient was given a prescription for a short course of [place]. Patient was instructed to follow-up with her primary care physician and orthopedic surgeon in 5 to 7 days. Patient was instructed to return if worse in any way. Patient understood and was agreeable with the plan. All questions were answered. 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-C7 level with history of fusion procedure Instructions: ED Degenerative Disk Disease Prescriptions: New hydrocodone-acetaminophen 5-325 mg tablet 1 tab PO Q6H PRN PRN (Reason: Pain) 3 Days Qty: 10 0RF No Action lamotrigine [Lamictal] 25 mg tablet 25 mg PO QDAY gabapentin 300 mg capsule 300 mg PO TID desvenlafaxine 50 mg tablet extended release 24 hr 50 mg PO QDAY tizanidine 4 mg tablet 4 mg PO QHS PRN (Reason: insomnia) Qty: 30 4RF meloxicam 7.5 mg tablet 7.5 mg PO BID PRN alprazolam [Xanax] 1 MG tablet 1 mg PO BID PRN PRN (Reason: Anxiety) Primary Care Provider: Donald Lieberman Referrals: Donald Lieberman MD [Primary Care Provider] - 3-5 Days Print Language: Estonian Disposition Disposition: Home, Self Care
[2024-07-30] MEDS: Morphine 4 MG/ML Syringe IM ×2 (10:31→11:14)
[2024-07-30 11:33] VITALS: BP 130/68; PULSE 72; RESP 16; TEMP 36.6; O2SAT 97
== END 2024-07-30 11:41 | disposition home or self-care (01) ==
PROVIDERS: Emergency Provider Emergency Medicine; PCP Family Medicine; Visit Provider Emergency Medicine
DX: M50.023 Cervical disc disorder at C6-C7 level with myelopathy (principal); I10 Essential (primary) hypertension; Z79.899 Other long term (current) drug therapy; F41.8 Other specified anxiety disorders
CPT/HCPCS: 96372; 99282

== ENCOUNTER 2024-08-27 09:42 | Observation (INO) | payer OTHER, SELFPAY ==
[2024-08-20 15:50] LABS: Magnesium 2.2 mg/dL (1.6-2.6)
[2024-08-20 19:53] LABS: Hepatitis B Surface Antibody Non-Reactive; Hepatitis C Antibody Non-Reactive (Nonreactive)
[2024-08-22 05:07] LABS: Hepatitis A AB, Total Negative (Negative)
[2024-08-26 16:13] LABS: HIV - WCH Non-Reactive (Nonreactive)
[2024-08-27] VITALS (15 sets, daily range): BP systolic 104–152; BP diastolic 59–112; PULSE 66–96; RESP 16–22; TEMP 36.4–37.2; O2SAT 42–100; BMI 29.9
[2024-08-27 05:48] LABS: Internal QC Validated? YES +Cl - CLEAR BKGD; Pregnancy, Urine Negative Negative
[2024-08-27] MEDS: Acetaminophen 500 MG Tablet 1000 MG PO ×3 (06:26→21:08)
[2024-08-27] MEDS: 0.9% Normal Saline (1000mL) 1,000 ML 15 ML IV (06:26)
--- NOTE | 2024-08-27 06:30 | RAD_ITS ---
PROCEDURE: CERVICAL SPINE IN THE OPERATING ROOM WITH MOBILE C-ARM REASON FOR EXAM: C6-C7 DISC REPLACEMENT. TECHNIQUE: MULTIPLE IMAGES OBTAINED WITH MOBILE C-ARM DURING SURGERY. COMPARISON: 07/12/2024 PLAIN FILMS OF THE CERVICAL SPINE. FINDINGS: Normal vertebral body heights. No visible fracture. Status post ACDF with anterior fusion plate at C5-C6. A disc prosthesis has been inserted at C6-C7. Mild spondylosis anteriorly at C4. Normal alignment. Prevertebral soft tissues are unremarkable. RAD/Cerv Spine 2 or 3 Views IMPRESSION: Postoperative findings as detailed above. Reading Location: [facility]
[2024-08-27] MEDS: Magnesium 1 GM over 15 mins IV (06:47)
--- NOTE | 2024-08-27 06:53 | PRE.ANES_ITS ---
ASA Classification* ASA Classification ASA Classification: 2 Assessment & Plan Anesthesia* Anesthesia Assessment Anesthesia Assessment: Discussed sedation and/or anesthesia options, risks, benefits, and alternatives with patient/parents/legal guardian/POA. Questions invited. The patient/parents/legal guardian/POA seems to understand and agrees to proceed with anesthesia plan. Reviewed the physical assessment, medical history, allergy history and patient home medications list prior to surgery/procedure/anesthetic and documented any changes. Performed airway and anesthesia risk assessments. Anesthesia Type Anesthesia Type: General History Source History Obtained from:: Patient and Chart Anesthesia Focused Assessment* Temperature: 98.4 F Pulse Rate: 71 Blood Pressure: 130/81 Respiratory Rate: 16 Pulse Ox: 99 Oxygen Delivery Method: Room Air Airway Assessment Mouth opens: >3 cm Mallampati Score: II Teeth Condition: Intact Neck Range of motion (ROM): Limited ROM (Decreased extension secondary to previous fusion) Focused Labs Anesthesia Preop lab: CBC WBC 8.2 K/mm3 (4.4-11.0) 06/12/24 11:00 06/12/24 RBC 4.39 M/mm3 (4.2-5.4) 06/12/24 11:00 06/12/24 Hgb 13.4 g/dL (12.0-15.0) 06/12/24 11:00 06/12/24 Hct 40.1 % (37-47) 06/12/24 11:00 06/12/24 Plt Count 295 K/mm3 (150-450) 06/12/24 11:00 06/12/24 CHEMISTRY Potassium 4.1 mmol/L (3.5-5.1) 06/12/24 11:00 06/12/24 Sodium 138 mmol/L (136-145) 06/12/24 11:00 06/12/24 Magnesium 2.2 mg/dL (1.6-2.6) 08/20/24 11:38 08/20/24 BUN 17 mg/dL (7-18) 06/12/24 11:00 06/12/24 Creatinine 0.80 mg/dL (0.55-1.02) 06/12/24 11:00 06/12/24 Glucose 114 mg/dL (74-106) H 06/12/24 11:00 06/12/24 TSH 2.72 uIU/mL (0.358-3.74) 06/03/18 11:42 COAG Urine Test Negative Negative 08/27/24 05:35 08/27/24 Pre-Assessment Diagnosis/Proposed Procedure Planned Operative Procedure(s): Cervical Disc Replacement C6-7, possible removal of hardware Anesthesia History 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 When Was Last Pacemaker Check QUESTION #4 FULL TEXT: You/Your Family Experience fever (hyperthermia) with Anesthesia Last Oral Intake Last Oral intake: Last Oral Intake NPO since 03:30 08/27/24 06:10 Meds taken in AM with sips of Yes 08/27/24 06:10 water? Meds patient instructed to take am of surgery Any additional information?: Yes NPO since: 03:30 (Patient took her Ensure at 3:30 AM.) Meds taken in AM with sips of water?: Yes PONV PONV - sales service representative: PONV - sales service representative Female Yes 08/13/24 09:26 HX of Motion Sickness No 08/13/24 09:26 HX of N/V After Surgery No 08/13/24 09:26 Non-Smoker Yes 08/13/24 09:26 Duration of Surgery greater Yes 08/13/24 09:26 than 60 minutes Number of Risk Factors 3 08/13/24 09:26 PONV Score Moderate Risk 08/13/24 09:26 Height & Weight Height & Weight: Anesthesia: Height & Weight Height 5 ft 4 in 08/27/24 06:10 Weight: 79 kg 08/27/24 06:10 Body Mass Index (BMI) 29.9 08/27/24 06:10 Respiratory Assessment Respiratory Assessment - sales service representative: Respiratory Tract Infection Hx - sales service representative Hx Respiratory Tract Infection No 08/13/24 09:26 STOP Sleep Apnea STOP Sleep Apnea - sales service representative: STOP Sleep Apnea - sales service representative Hx Hypertension No 08/13/24 09:26 Hx Sleep Apnea No 08/13/24 09:26 CPAP BIPAP Do you snore loudly (louder No 08/13/24 09:26 than talking or can be heard Do you often feel tired/ No 08/13/24 09:26 fatigued/ sleepy during daytime? Has anyone observed you stop No 08/13/24 09:26 breathing during sleep? STOP Results Negative 08/13/24 09:26 QUESTION #5 FULL TEXT : Do you snore loudly (louder than talking or can be heard through closed doors)? 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 Specify any problems Hx of Preganancy in last 3 N/A 08/13/24 09:26 Months Nurse Filling Out Transfusion NBUCHER 08/13/24 09:26 & Questions: Date: 08/13/24 08/13/24 09:26 Time: :08/13/24 09:26 Patient unable to answer at this time (ie. confused, unrespo /Reproduction History /Reproductive History - sales service representative: /Reproductive Hx- sales service representative Hx Now Gestational Age (in weeks): EDC: Hx Hx Para Hx Section SAB No 08/13/24 09:26 Active Medications Active Medications: Current Medications Generic Name Dose Route Start Last Admin Trade Name Freq PRN Reason Stop Dose Admin Acetaminophen 1,000 mg 08/27/24 07:30 08/27/24 06:26 Acetaminophen 500 Mg Tablet PO 08/27/24 07:31 1,000 mg X1 ONE Administration Dexamethasone Sodium Phosphate 8 mg 08/27/24 07:30 Dexamethasone 10 Mg/Ml Vial IV 08/27/24 07:31 X1 ONE Dexamethasone Sodium Phosphate 4 mg 08/27/24 07:30 Dexamethasone 4 Mg/Ml Vial IV 08/27/24 07:31 X1 ONE Cefazolin Sodium 2 gm/ N/A 20 mls @ 400 mls/hr 08/27/24 07:30 IV 08/27/24 07:32 PREOP ONE Tranexamic Acid 1,000 mg/ 110 mls @ 440 mls/hr 08/27/24 07:30 Sodium Chloride IV 08/27/24 07:44 X1 ONE Tranexamic Acid 1,000 mg/ 110 mls @ 440 mls/hr 08/27/24 07:30 Sodium Chloride IV 08/27/24 07:44 X1 ONE Magnesium Sulfate 1 gm/ 102 mls @ 408 mls/hr 08/27/24 07:30 08/27/24 06:47 Dextrose IV 08/27/24 07:44 408 mls/hr X1 ONE Administration Sodium Chloride 1,000 mls @ 15 mls/hr 08/27/24 06:25 08/27/24 06:26 IV 09/01/24 19:44 15 mls/hr .Q48H MOHSEN Administration Protocol Insulin Human Lispro 1 - 6 unit 08/27/24 07:30 Insulin Lispro 100 Unit/Ml Insuln.Pen SC 08/27/24 23:59 Q4H PRN PRN BG>/= 180, SEE PROTOCOL Protocol PFSH Medical History Marijuana use Arthritis Restless legs Cervical spondylolysis Cervical spinal stenosis DDD (degenerative disc disease), cervical Adjacent segment disease Cervicogenic headache Bipolar 1 disorder Insulin resistance Hypothyroidism Polycystic ovary HTN (hypertension) Back problem Anxiety and depression Seasonal allergies Home Medications ?Medication ?Instructions ?Recorded ?Last Taken ?Type alprazolam 1 mg tablet (Xanax) 1 mg PO BID PRN PRN Anx iety 08/08/18 Unknown History desvenlafaxine 50 mg 50 mg PO QDAY 05/12/24 Unkno wn History tablet,extended release 24 hr lamotrigine 25 mg tablet (Lamictal) 25 mg PO QDAY 10/30 Unknown History tizanidine 4 mg tablet 4 mg PO QHS PRN insomnia #30 tabs 05/12/24 Unknown Rx hydrocodone-acetaminophen 5-325mg 1 tab PO Q6H PRN PRN Pain 3 days 07/30/24 Unknown Rx 5mg-325mg #10 TABLETS gabapentin 600 mg tablet 600 mg PO TID PRN pain 08/1308/27/24 03:30 History lamotrigine 200 mg tablet 200 mg PO DAILY 08/13/24 Unk nown History Allergy/AdvReac Type Severity Reaction Status Date / Time No Known Allergies Allergy Verified 08/27/24 06:04 Family History Unknown Asthma Diabetes Hypertension High cholesterol hormone problems Surgical History History of fusion of cervical spine Hx of neck surgery H/O oral surgery Social History Smoking Status: Never smoker alcohol intake: never substance use type: does not use Review of Systems (Anesthesia) ROS Narrative System reviewed and no additional complaints, except as documented.
[2024-08-27 07:10] LABS: Bedside Glucose 88 mg/dL (74-106)
--- NOTE | 2024-08-27 07:18 | PCM.HP.BLA ---
History and Physical Date of Admission: 08/27/24 MR#: [id number] Acct: [id number] Name: MAURILIO BEARD Rep #: [id number] : 1985 Provider: Dr. Poli Bro MD Age/Sex: 38/F Location: [facility] [place] Status: Signed Intake Vital Signs 07/30/2508:31 Height 5 ft 4 in Intake Visit Reasons: cervical spine Accompanied by: Allergies No Known Allergies Allergy (Verified 08/21/24 15:36) Medications ?Medication ?Instructions ?Recorded ?Confirmed ?Type alprazolam 1 mg tablet (Xanax) 1 mg PO BID PRN PRN Anxiety 08/08/18 08/21/24 History desvenlafaxine 50 mg 50 mg PO QDAY 05/12/24 08/21/24 History tablet,extended release 24 hr lamotrigine 25 mg tablet (Lamictal) 25 mg PO QDAY 05/12/24 08/21/24 History tizanidine 4 mg tablet 4 mg PO QHS PRN insomnia #30 tabs 05/12/24 08/21/24 Rx hydrocodone-acetaminophen 5-325mg 1 tab PO Q6H PRN PRN Pain 3 days 07/30/24 08/21/24 Rx 5mg-325mg #10 TABLETS gabapentin 600 mg tablet 600 mg PO TID PRN pain 08/13/24 08/21/24 History lamotrigine 200 mg tablet 200 mg PO DAILY 08/13/24 08/21/24 History PFSH Medical History Marijuana use Arthritis Restless legs Cervical spondylolysis Cervical spinal stenosis DDD (degenerative disc disease), cervical Adjacent segment disease Cervicogenic headache Bipolar 1 disorder Insulin resistance Hypothyroidism Polycystic ovary HTN (hypertension) Back problem Anxiety and depression Seasonal allergies Surgical History History of fusion of cervical spine Hx of neck surgery H/O oral surgery Family History Unknown Asthma Diabetes Hypertension High cholesterol hormone problems Social History Smoking Status: Never smoker alcohol intake: never substance use type: does not use HPI cervical spine Details: This documentation accurately reflects the service provided and the decisions made by me, Dr. Poli Bro MD 08/21/24 [id number]. Part of today?s visit was documented by Kizzy LITTLEJOHN, acting as scribe. MAURILIO BEARD is a 38 year old F here today for pre-op cervical spine, dos: 08/27/24. Patient complains of cervical spine pain and numbness into the left arm that goes down into her hand/fingers. Patient is RHD. Patient states she will drop things out of her hands even mail. 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 Patient has a history of cervical spine surgery. She complains of the same symptoms prior to the first surgery. She had the left arm numbness/tingling prior to that surgery. She denies any recent falls or balance issues. No heart/lung problems. 07/22/24: MAURILIO BEARD is a 38 year old F here today NEW patient for her neck. She has been seeing Dr. Finch which is who she was referred by. She does have a recent MRI of her neck that we have in the system. She has been having pain since January 31, 2023. She did have an ACDF of C5-6 on May 16, 2023 that was done by Dr. Freeman. She states that before surgery she was having pain in her neck and numbness down the right arm then after the surgery she was doing well for a few months then started having severe pain with numbness down the left arm and dropping things. Now she can start to feel numbness going down both arms.She is taking gabapentin for nerve pain. Her last epidural injection was in was in June 27 but did have an RFA in January to try and help with the headaches she gets from her neck. The RFA did help with her headaches but they are starting to come back. She did do PT in september in October of 2023 after her surgery. Right sided pain before surgery. 4 injections with pain management over the last 8 months. RFA gave 6 months of relief of just her headaches, she continued to have neck pain and left sided arm radicular pain. She has noticed left sided dexterity issues worsening over the several months and left sided weakness. She has had to use 2 hands to drink from a cup. No diabetes, no blood thinners, no heart/lung issues. Ortho Exam General General: Yes no acute distress Neurologic: Yes alert and Yes oriented x3 Psychologic: Yes reasonable and appropriate Spine SPINE TESTING CERVICAL THORACIC LUMBAR Musculoskeletal Strength 0=absent - 5=normal Details: Neurological exam of the upper extremities showed 4- power left wrist extension and 4+ compound worker strength, all other muscle groups showed 5 power. Normal sensations across all dermatomes. No hyperreflexia. Very tender to palpation of the midline spine and left paraspinal. Physical exam showed a left sided surgical scar well healed. Coding Level of Care Code Off vis,est,level 4 Diagnoses Cervical myelopathy G95.9 Cervical radiculopathy M54.12 Time Spent (min) 35 Assessment and Plan Assessment and Plan (1) Cervical myelopathy: Status: Acute (2) Cervical radiculopathy: Status: Acute Plan Reviewed imaging with patient today. X-rays show hardware and bone graft from previous cervical fusion C5-6 well-healed. X-rays also show degenerative changes of the space above the fusion, C4-5, as well as the space below C6-7. Reviewed MRI with the patient which showed a moderate stenosis of C6-7 with a soft herniation. The risks include but are not limited to infection, bleeding, hematoma formation, need for further surgery,Explained imaging findings in detail. At this time the patient has had pain that has worsened her quality of life. She says that she has increased dexterity issues which has worsened over the last several months to result in her dropping objects from her hands and needing to use 2 hands to drink from a cup. In this time she has also noticed left sided weakness which was noticed on physical exam especially with wrist extension. Discussed options today with the patient which includes more physical therapy, injections with pain management, surgery. Discussed a 1 level disc replacement at C6-7. Discussed the difference between a disc replacement versus a fusion which includes mobility at the level with a disc replacement which the patient wishes to pursue. Discussed that a disc replacement at this level would not decrease the risk of continued deterioration at C4-5 which is above her prior fusion. Discussed the benefits and risks of surgery. Adjacent segment degeneration, prosthesis severe, need for fusion, dysphagia, dysphonia, recurrent laryngeal nerve injury, DVT, pulm embolism, and pneumonia, atelectasis, cardiopulmonary event. Patient understands and agrees to proceed with surgery. Consent was signed.
[2024-08-27] MEDS: Cefazolin 2 GM in Syringe 10 ML IV ×3 (07:32→23:06)
[2024-08-27] MEDS: TRANEXAMIC ACID 1,000 MG in 0.9% Normal Saline (100mL Bag) 100 ML 440 MG IV ×2 (07:40→09:15)
[2024-08-27] MEDS: dexAMETHasone 10 MG/ML Vial 8 MG IV (07:45)
--- NOTE | 2024-08-27 09:57 | OP.PCM_ITS ---
Procedures Musculoskeletal [id number]-29xxx: Other Procedure See Report Operative Report (Standard) Operative Information Date of Procedure: 08/27/24 Pre-Operative Diagnosis: C6-7 disc herniation, radiculomyelopathy, prior C5-6 fusion Post-Operative Diagnosis: Same Surgery/Procedure Performed: C6-7 disc replacement, partial removal of hardware finish cleaner: Yes Architecture Internship: Edel López Tasks completed by internal medicine physician assistant: Closing, Removing tissue, Hemostasis: Electrocautery and Retracting Type of Anesthesia: General RN Documented Start/Stop Times: Operation Date: 08/27/24 07:30 Case Time Into Pre-Op 08/27/24 05:45 Out of Pre-Op 08/27/24 07:26 Anesthesia Start 08/27/24 07:28 Into Room 08/27/24 07:28 Procedure Start 08/27/24 07:58 Procedure End 08/27/24 09:34 Anesthesia End 08/27/24 09:39 Out of Room 08/27/24 09:39 Procedure Start Time: 07:58 Procedure Stop Time: 09:34 Select all DRAINS/GRAFTS/IMPLANTS that apply: Drains Drain details: Sherry drain and Prosthetic device Prosthetic device details: Zimvie Mobi-C cervical disc replacement prosthesis Estimated Blood Loss: 10 cc Specimen collected: No Description of surgery: Preoperative diagnosis: C6-7 disc herniation, with radiculomyelopathy, prior C5- 6 fusion Postoperative diagnosis: Same Name of procedure: C6-7 anterior cervical disc replacement, partial removal of hardware of prior C5-6 fusion - Cervical disc replacement C6-7, CPT code 18612 -Right C6 screw removal, CPT 45958, modifier 52. Attending surgeon: Poli Bro M.D. Anesthesia: Gen. endotracheal Estimated blood loss: 10 mL Complications: None Instrumentation used: Denis Biomet Mobi-C cervical disc replacement implants Indications: The patient is a pleasant 38-year-old lady who presented with symptoms of neck pain, progressive left for the right upper extremity radiation, difficulty with dexterity and balance. MRI revealed C6-7 left paracentral disc herniation with left hemicord compression, prior C5-6 ACDF. In order to halt the progression of myelopathy, patient requested surgical intervention. All risks and benefits of the procedure were explained to the patient. The risks include but are not limited to infection, bleeding, injury to nerves and vessels, vertebral artery injury, spinal cord injury, paralysis, vocal cord paralysis, injury to esophagus, need for further procedures, adjacent segment degeneration, heterotopic ossification, implant loosening, implant failure, DVT, pulmonary embolism, cardiopulmonary event, etc. Procedure: The patient was identified in the preoperative suite using unique patient identifiers. Skin was marked consent was taken and all questions were answered. The patient was then brought back to the operative room and a timeout was performed. General endotracheal anesthesia was given. Intraoperative neuro monitoring leads were applied. The patient was carefully positioned supine on a regular OR table. A lateral x-ray with a C-arm was done to identify the level and to define the incision. The anterior neck was then prepped and draped in the usual fashion. A final timeout was then performed. A transverse skin incision was then taken to the right of midline 2 fingerbreadths above the clavicle. Subcutaneous tissue was then divided with Bovie. Platysma was identified and cut transversely with scissors. The fascial interval between the sternocleidomastoid and the larynx was developed. Omohyoid was identified and mobilized medially and inferiorly. Carotid sheath was laterally while the esophagus with the larynx was retracted medially to reach the prevertebral fascia. All prevertebral layers of fascia were bluntly dissected and a [place] pin was placed into one of the bodi es. A lateral C-arm image was used to confirm the correct level. Once this was done longus coli muscle was elevated on both sides at and above and below C6-7 disc. Lower portion of the anterior cervical plate at C5-6 was exposed. Significant scarring was noticed in the prevertebral tissues during the exposure of the inferior portion of the plate. Middle locking screw was loosened, and right C6 screw was removed to allow placement of [facility] pin. However the screw was found to be lose and [facility] pin did not get good purchase. [facility] pin was then placed at a different position right underneath the plate. Another [facility] pin was also placed in C7 at midline. The C6 screw of the previous plate was not reinserted as this was loose. Shadow line retractors were then placed with great care to protect the esophagus. A long handle knife was then used to perform annulotomy at C6-7. Disc fragments were removed with the pituitary. [facility] pins were placed in distraction. Curettes were utilized to remove cartilage from the endplates. Discectomy was performed laterally up to the uncovertebral joints. Adequate decompression was performed, PLL was thinned out and partially resected. Foramina were decompressed without taking down the uncovertebral processes. Once the disc space was prepared, trials of various sizes were utilized. Thorough irrigation was given. Mobi-C anterior cervical disc replacement implant of size 17 x 15 mm with 5 mm height was then placed under fluoroscopic guidance. Adequate positioning was noticed on AP and lateral views. Thorough irrigation was again given. Hemostasis was achieved with FloSeal and bipolar cautery. [place] drain was placed. Closure was done with 3-0 Vicryl for the platysma and subcutaneous tissue layers and 4-0 Monocryl for the skin. Closure was done around the drain. Steri-Strips were applied and dressing was done with 4 x 4 gauze and Tegaderm. A cervical collar was then applied. The patient was then woken up from anesthesia extubated and taken to PACU in stable condition. Intraoperative neuro monitoring was performed throughout this procedure. Motor evoked potentials were run periodically. All potentials remained at baseline th roughout the procedure. I was present for the entire surgery and performed the surgery myself. Dip Tanker Edel López PA-C. My physician client services assistant was a vital part of this case. They were important in appropriate retraction during the case, and protection of soft tissues during the procedure. Their intimate knowledge of the case and my steps aided in safe and expedient completion of the procedure as well as appropriate position of the patient during the surgery. They were also vital in assisting with closure under my direct supervision. Surgical Findings: See operative note Complications Complications: No
--- NOTE | 2024-08-27 10:17 | PCM.POST.ANE ---
Anesthesia: Postop Eval I Current Vital Signs Temperature: 98.3 F Pulse Rate: 88 Blood Pressure: 138/97 Respiratory Rate: 21 Pulse Ox: 100 Oxygen Delivery Method: Nasal Cannula Assessment Airway patent: Yes Spontaneous unlabored respirations: Yes Mental status: Awake (anxious ) nausea: No Vomiting: No Anesthesia Complication: No Fluid Hydration Crystalloid volume administer (ml): 1,200 Total IV fluid infused: 1,200 Progress Note Anesthesia document: Postop Eval 1 completed: Yes
--- NOTE | 2024-08-27 11:42 | POSTOPAN2_ITS ---
Anesthesia Postop Eval I Sum Postop Eval Completion status Anesthesia document: Postop Eval 1 completed: Yes Anesthesia Postop Eval I Summary Anesthesia Postop Eval I Summary: Anesthesia Postop Eval I: Assessment Summary Airway patent Yes 08/27/24 10:18 MOTION PI[employer]URE SCENE BUILDER.[email or web address] Spontaneous unlabored Yes 08/27/24 10:18 MOTION PICTURE SCENE BUILDER.HBARR respirations Mental status Awake - anxious 08/27/24 10:18 MOTION PICTURE SCENE BUILDER.HBARR nausea No 08/27/24 10:18 MOTION PICTURE SCENE BUILDER.HBARR Vomiting No 08/27/24 10:18 MOTION PICTURE SCENE BUILDER.HBARR Anesthesia Postop Eval I: Fluid Summary Crystalloid volume administer 1,200 08/27/24 10:18 MOTION PICTURE SCENE BUILDER.HBARR (ml) Colloids volume administered ( ml) Blood Product volume administered (ml) Total IV fluid infused 1,200 08/27/24 10:18 MOTION PICTURE SCENE BUILDER.HBARR Anesthesia Postop Eval I: Summary Notes Anesthesia Complication No 08/27/24 10:18 MOTION PICTURE SCENE BUILDER.HBARR Anesthesia Complication Comment: Post-operative progress note Anesthesia: Postop Eval II Evaluation Mental status: Awake and Calm Pain Level: 2 nausea: No Vomiting: No
--- NOTE | 2024-08-27 11:42 | PCM.POSTANE2 ---
Anesthesia Postop Eval I Sum Postop Eval Completion status Anesthesia document: Postop Eval 1 completed: Yes Anesthesia Postop Eval I Summary Anesthesia Postop Eval I Summary: Anesthesia Postop Eval I: Assessment Summary Airway patent Yes 08/27/24 10:18 [employer]ROLE[employer]SPORT DRIVER.[email or web address] Spontaneous unlabored Yes 08/27/24 10:18 PETROLEUM [employer]SPORT DRIVER.HBARR respirations Mental status Awake - anxious 08/27/24 10:18 PETROLEUM [employer]SPORT DRIVER.HBARR nausea No 08/27/24 10:18 PETROLEUM [employer]SPORT DRIVER.HBARR Vomiting No 08/27/24 10:18 PETROLEUM [employer]SPORT DRIVER.HBARR Anesthesia Postop Eval I: Fluid Summary Crystalloid volume administer 1,200 08/27/24 10:18 PETROLEUM TRANSPORT DRIVER.HBARR (ml) Colloids volume administered ( ml) Blood Product volume administered (ml) Total IV fluid infused 1,200 08/27/24 10:18 PETROLEUM TRANSPORT DRIVER.HBARR Anesthesia Postop Eval I: Summary Notes Anesthesia Complication No 08/27/24 10:18 PETROLEUM TRANSPORT DRIVER.HBARR Anesthesia Complication Comment: Post-operative progress note Anesthesia: Postop Eval II Evaluation Mental status: Awake and Calm Pain Level: 2 nausea: No Vomiting: No
[2024-08-27] MEDS: HYDROcodone Bitartrate/Apap 5/325 Tablet PO ×3 (12:48→21:08)
--- NOTE | 2024-08-27 14:03 | PCM.CONS.GEN ---
Assessment & Plan Assessment/Plan (1) Cervical myelopathy: (2) Cervical radiculopathy: PLAN: Plan This is a 38-year-old female being admitted after elective surgery on cervical spine. 1. C6-7 disc herniation, radiculomyelopathy. Prior C5-6 fusion surgery: Patient had partial removal of hardware, C6-7 disc replacement: Patient has [place] drain. She is admitted MedSurg floor. Continue cervical hard collar as recommended by surgeon. PT and OT. Bowel and bladder care. 2. Cervical spondylosis with radiculopathy: Chronic problem. 3. Anxiety depression and bipolar disorder: Continue home medication. DVT prophylaxis: Low risk. Bilateral SCDs. As per discretion of the operating surgeon HPI Consult Data Date of Consult: 08/27/24 HPI Narrative Reason for Consultation: Perioperative management. HPI Narrative: MAURILIO BEARD, is a 38 F with history of cervical disc herniation, C5-6 fusion surgery in May 2023 but still was having severe cervical neck pain with radiation to left arm, numbness and weakness. She stated she was dropping from her left arm. Patient had a scheduled cervical spine surgery by Dr. Sullivan. She was saline thank you. Mild soakage of the dressing. On cervical hard collar. Denies chest pain shortness of breath. Had bowel movement yesterday. Denies burning micturition or acute urinary tract symptoms. [facility] Medical History Marijuana use Arthritis Restless legs Cervical spondylolysis Cervical spinal stenosis DDD (degenerative disc disease), cervical Adjacent segment disease Cervicogenic headache Bipolar 1 disorder Insulin resistance Hypothyroidism Polycystic ovary HTN (hypertension) Back problem Anxiety and depression Seasonal allergies Home Medications ?Medication ?Instructions ?Recorded ?Last Taken ?Type alprazolam 1 mg tablet (Xanax) 1 mg PO BID PRN PRN Anxiety 08/08/18 Unknown History desvenlafaxine 50 mg 50 mg PO QDAY 05/12/24 Unknown History tablet,extended release 24 hr lamotrigine 25 mg tablet (Lamictal) 25 mg PO QDAY 05/12/24 Unknown History tizanidine 4 mg tablet 4 mg PO QHS PRN insomnia #30 tabs 05/12/24 Unknown Rx hydrocodone-acetaminophen 5-325mg 1 tab PO Q6H PRN PRN Pain 3 days 07/30/24 Unknown Rx 5mg-325mg #10 TABLETS gabapentin 600 mg tablet 600 mg PO TID PRN pain 08/13/24 08/27/24 03:30 History lamotrigine 200 mg tablet 200 mg PO DAILY 08/13/24 Unknown History Allergy/AdvReac Type Severity Reaction Status Date / Time No Known Allergies Allergy Verified 08/27/24 06:04 Family History Unknown Asthma Diabetes Hypertension High cholesterol hormone problems Surgical History History of fusion of cervical spine Hx of neck surgery H/O oral surgery Social History Smoking Status: Never smoker alcohol intake: never substance use type: does not use ROS ROS Narrative Constitutional: Reports fatigue and weakness. No fever. HEENT: Head neck surgery reports systems reviewed and no addt'l complaints, except as documented Respiratory/Chest: Non-smoking. Denies chronic lung disease. No acute shortness of breath or respiratory distress or wheezing. CVS: Denies chronic heart disease. Gastrointestinal: Denies coffee ground emesis, hematemesis or vomiting Genitourinary: Denies burning urination or new urinary tract symptoms Musculoskeletal: Denies acute joint pain or limited range of motion. No acute injury Neurologic: Denies seizure-like symptoms. skin: Had surgery Endocrinology: Reports systems reviewed and no addt'l complaints, except as documented Hematologic/Lymphatic: Reports systems reviewed and no addt'l complaints, except as documented Rest 14 ROS are negative except as mentioned in HPI Physical Exam Narrative General: Alert, Oriented x3, Cooperative HEENT: Atraumatic, PERRLA, EOMI, Normocephalic Oral: Oral mucosa could not be examined because of hard collar. Neck: On hard collar. Small surgical drain. Chest wall/Lungs: Air entry diminished in bilateral lung bases. No crepitation/rhonchi Cardiovascular: Regular rate, Regular Rhythm, Normal S1, Normal S2, No M/G/R Abdomen: Bowel Sounds Present, Soft, Non Tender, Non-Distended : No dysuria. No renal angle tenderness. No suprapubic tenderness. Extremities: No edema, Capillary Refill Less than 3 Seconds Skin: Lateral cervical neck surgical dressing, mild soaked with serous and sanguinous fluid. No hematoma. Musculoskeletal: No Tenderness to Palpation of Joints or Extremities. Muscle strength in upper and lower extremities was not checked Neurological: Cranial nerves II-XII grossly intact, DTR 2+/4. No acute focal neurological deficit. Psych/Mental Status: Flat affect. Lab / Micro Data Labs: Laboratory Results - last 24 hr 08/20/24 11:44: HIV 1&2 Antibody Non-Reactive 08/27/24 05:35: Urine Test Negative 08/27/24 06:30: Blood Type A POSITIVE, Antibody Screen NEGATIVE 08/27/24 06:37: POC Glucose 88 Charges/Coding Visit Charges Office Visits / Consults: 45301 OV L4 Est 30min
[2024-08-27] MEDS: dexAMETHasone 4 MG/ML Vial IV ×2 (15:01→21:08)
[2024-08-27] MEDS: Methocarbamol 500 MG Tablet 1000 MG PO ×3 (15:01→21:08)
[2024-08-27] MEDS: ALPRAZolam 0.5 MG Tablet 1 MG PO (21:08)
[2024-08-28 05:00] VITALS: BP 113/74; PULSE 62; RESP 18; TEMP 36.9; O2SAT 98
[2024-08-28] MEDS: dexAMETHasone 4 MG/ML Vial IV (05:12)
[2024-08-28 06:30] LABS: Hematocrit 36.8 % (37-47); Hemoglobin 12.6 g/dL (12.0-15.0); Mean Corp Hgb Conc 34.2 g/dL (32-36); Mean Corpuscular Hgb 30.5 pg (27.0-32.0); Mean Corpuscular Volume 89.1 fL (81-99); Platelet Count 298 K/mm3 (150-450); RBC Distribution Width CV 11.9 % (11.6-14.6); RBC Distribution Width SD 38.7 fl (35.1-43.9); Red Blood Count 4.13 M/mm3 (4.2-5.4); White Blood Count 18.5 K/mm3 (4.4-11.0)
[2024-08-28] MEDS: HYDROcodone Bitartrate/Apap 5/325 Tablet PO ×2 (06:36→13:02)
[2024-08-28] MEDS: Acetaminophen 500 MG Tablet 1000 MG PO (06:37)
[2024-08-28 06:52] LABS: Anion Gap 6 (5-15); BUN 10 mg/dL (7-18); BUN/Creat Ratio 16.7 RATIO (10-20); Calcium,Total 8.3 mg/dL (8.5-10.1); Chloride 109 mmol/L (98-107); EST Glomerular Filtration Rate 119 mL/min (>60); Est Glom Filt Rate - Afr Amer 144 mL/min (>60); Estimated Creatinine Clearance 129.29 ml/min; Glucose 124 mg/dL (74-106); Sodium Level 138 mmol/L (136-145)
--- NOTE | 2024-08-28 07:00 | RAD_ITS ---
PROCEDURE: CERV SPINE 2 OR 3 VIEWS REASON FOR EXAM: 38-year-old female, status post cervical disc replacement. TECHNIQUE: 2 views of the cervical spine. COMPARISON: C-spine radiographs 114 25. FINDINGS: ACDF hardware at C5-6, with interval intervertebral disc spacer placement at C6- 7. Normal vertebral body heights. No visible fracture. Disc space heights are preserved. Normal alignment. Prevertebral soft tissues are unremarkable. RAD/Cerv Spine 2 or 3 Views IMPRESSION: Postoperative radiographs as described. Reading Location: [id number]
[2024-08-28 08:24] VITALS: O2SAT 96
[2024-08-28 09:24] VITALS: BP 118/71; PULSE 90; RESP 18; TEMP 36.8; O2SAT 100
[2024-08-28] MEDS: lamoTRIgine 25 MG Tablet PO (09:34)
[2024-08-28] MEDS: Venlafaxine XR 37.5 MG Capsule PO (09:35)
[2024-08-28] MEDS: Senna/Docusate Sodium 1 Tablet 2 TABLET PO (09:35)
[2024-08-28] MEDS: Methocarbamol 500 MG Tablet 1000 MG PO (09:35)
[2024-08-28] MEDS: Meloxicam 15 MG Tablet PO (09:35)
[2024-08-28] MEDS: lamoTRIgine 100 MG Tablet 200 MG PO (09:35)
--- NOTE | 2024-08-28 11:48 | PHA.DC_ITS ---
Pharmacy [facility] Service has performed discharge medication reconciliation and counseling for this patient. The patient's discharge medication list was reviewed for discrepancies and discrepancies were resolved. The patient was counseled on the following discharge medications and changes in medications for homegoing were reviewed. 1. NORCO 2. ROBAXIN 3. MOBIC 4. SENNA-S Note: Also counselled patient on use of medications prescribed plus home xanax to minimize excessive drowsiness. Patient verbalized understanding at this time. The Reason for Use, instructions for use, and potential side effects were reviewed for all new medications. The patient's questions regarding all of their medications were answered. The patient was able to verbally demonstrate an understanding of their discharge medications. Medications at Discharge Home Medications alprazolam 1 mg tablet (Xanax) 1 mg PO BID PRN PRN Anxiety 08/08/18 desvenlafaxine 50 mg tablet,extended release 24 hr 50 mg PO QDAY 05/12/24 lamotrigine 25 mg tablet (Lamictal) 25 mg PO QDAY 05/12/24 gabapentin 600 mg tablet 600 mg PO TID PRN pain 08/13/24 lamotrigine 200 mg tablet 200 mg PO DAILY 08/13/24 hydrocodone-acetaminophen 5-325mg 5mg-325mg 1 tab PO Q6H PRN pain 5 days #20 tabs 08/28/24 meloxicam 15 mg tablet 15 mg PO DAILY #30 tabs 08/28/24 methocarbamol 500 mg tablet 750 mg (1.5 x 500 mg) PO TID PRN pain/spasms #30 tabs 08/28/24 sennosides 8.6 mg-docusate sodium 50 mg tablet (Stimulant Laxative Plus) 2 tab PO BID PRN constipation #30 tabs 08/28/24
--- NOTE | 2024-08-28 12:11 | PN.ORTHO_ITS ---
Subjective Subjective Patient is postop day 1 C6-7 disc replacement. She is doing well postoperatively with her pain well-managed. The patient has been seen by physical therapy and has walked without any assistive device. Her dressings were changed 1 time overnight by nursing due to saturation. Patient was wearing cervical collar upon arrival with her head of the bed elevated. Says that her arm pain that she was having prior to the surgery has improved and she just has some mild surgical related pain in her neck. Denies any dysphagia issues. Objective Data Objective Data Vital Signs: Vital Signs Temp Pulse Resp BP Pulse Ox O2 Del Method O2 Flow Rate 98.2 F 90 18 118/71 100 Room Air 4 08/28/24 09:24 08/28/24 09:24 08/28/24 09:24 08/28/24 09:24 08/28/24 09:24 08/28/24 09:26 08/27/24 10:45 Oxygen Flow Rate (L/min) 4 Oxygen Delivery Method Room Air Weight: 174 lb 2.643 oz Body Mass Index (BMI) 29.9 Intake & Output: Intake and Output for Last 24 Hours 08/26/24 08/27/24 08/28/24 23:59 23:59 23:59 Intake Total 1882 / 1882 302.25 / 302.25 Balance 1882 / 1882 302.25 / 302.25 Lab / Micro Data 08/28/24 06:01 08/28/24 06:01 Labs: Laboratory Results - last 24 hr 08/28/24 06:01: WBC 18.5 H, RBC 4.13 L, Hgb 12.6, Hct 36.8 L, MCV 89.1, MCH 30.5, MCHC 34.2, RDW Std Deviation 38.7, RDW Coeff of Cyn 11.9, Plt Count 298, MPV 9.0, Sodium 138, Potassium 4.0, Chloride 109 H, Carbon Dioxide 23.0, Anion Gap 6, BUN 10, Creatinine 0.60, Estim Creat Clear Calc 129.29, Est GFR (MDRD) Af Amer 144, Est GFR (MDRD) Non-Af 119, BUN/Creatinine Ratio 16.7, Glucose 124 H, C alcium 8.3 L Micro: Microbiology 08/20/24 11:38 Swab (Method) Nasal Screen MRSA/MSSA - Final Radiography Diagnostic Testing: Radiology Impression Cervical Spine X-Ray 08/28/24 07:00 IMPRESSION: Postoperative radiographs as described. Reading Location: [id number] Physical Exam Narrative Neurological exam of the upper extremities shows 5X5 power. Normal sensation across all dermatomes. Drain was removed. There was no discharge on dressing before removing the drain. New gauze and Tegaderm was applied over the incision. Cervical collar was reapplied. Const alert, oriented x3 and no apparent distress Assessment & Plan Assessment/Plan (1) Status post cervical disc replacement: PLAN: Plan Cervical xrays obtained today looks good. Cleared by PT/OT for home discharge. Home meds include [place], meloxicam, methocarbamol, senna. Reviewed restrictions of no bending, lifting, twisting. She can wear the cervical collar for the first 24 hours then just as needed for the first week. She will follow up in clinic in 2 weeks. Patient is in agreement.
--- NOTE | 2024-08-28 12:30 | CASEMGMT ---
RN CM Face to Face with patient for initial transition planning/care coordination assessment. RN CM introduced self and role at [facility]. Patient lying in bed, alert and oriented. Patient willing to participate in assessment and is able to answer all questions appropriately. Care providers, pharmacy, and demographics verified. Strata: 1 PCP:MAGNUS Hooper Specialists: [facility]erred [facility]acy[facility] Insurance: [employer] Prescription Benefit: yes Living Will/HPOA: none LNOK: sister Living Arrangements: Patient lives with boyfriend in a single story home with no steps to enter. Patient is independent at home. Transportation: self, boyfriend, sister DME/HHC: Patient denies DME in the home. No previous HHC or SNF Patient wishes to discharge home, denies need for home health at this time. Patient states she has no further needs or concerns at this time. CM to follow for discharge planning needs that may arise. Disposition Plan: Patient to discharge home with family support and follow-up plans in place. Maria Elena MONTEIRON, RN, CM
== END 2024-08-28 13:25 | disposition home or self-care (01) ==
LOC: ACINP 15:03 → SDC 15:04 → MS3 15:04
PROVIDERS: Anesthesiology; Student in an Organized Health Care Education/Training Program; Admitting Provider Orthopaedic Surgery Orthopaedic Surgery of the Spine; PCP Registered Nurse; Referring Provider Orthopaedic Surgery Orthopaedic Surgery of the Spine; Visit Provider Orthopaedic Surgery Orthopaedic Surgery of the Spine
PROC: (CPT 22856; principal; 2024-08-27 07:00)
DX: M50.023 Cervical disc disorder at C6-C7 level with myelopathy (principal); F31.9 Bipolar disorder, unspecified; M50.123 Cervical disc disorder at C6-C7 level with radiculopathy; Z47.2 Encounter for removal of internal fixation device; I10 Essential (primary) hypertension; Z98.1 Arthrodesis status; Z79.899 Other long term (current) drug therapy; M47.22 Other spondylosis with radiculopathy, cervical region; M47.12 Other spondylosis with myelopathy, cervical region
CPT/HCPCS: 22856; 00600; 20680; 36415; 72040; 76000; 80048; 81025; 82962; 83735; 85027; 86703; 86706; 86708; 86803; 86850; 86900; 86901; 87077; 87081; 94668; 96374; 96375; 96376; 97161; 99221; A4648; G0378; J2405; J3475

== ENCOUNTER 2024-10-21 12:00 | Outpatient (RCR) | payer OTHER, SELFPAY ==
--- NOTE | 2024-09-26 08:01 | HP.PTEVAL ---
Patient's Visit Information Visit Information Visit Information: MAURILIO BEARD is a 38 year old F referred to Physical Therapy by HAILEE Srinivasan with a diagnosis of C/S disc replacement 08/27/24. Date of Evaluation: 09/26/24 Physical Therapist: Theo Varma, PT, ATC Visit Plan Frequency: 2x /Week Duration: 6-8 weeks Plan: Begin with scapular strengthening ex's and STM to the cervical spine. incorporate cervical spine stretching after 2 weeks. Include postural education and training throughout treatment. Subjective Subjective: DOS: 08/27/24. Pt had a cervical disc replacement at this time. Pt reports she had a fusion performed 05/2023 which was unsuccessful. Pt notes she had no relief from that surgery, so she had to have this surgery performed. Pt reports she is really happy to have had this surgery as she has been feeling 70% better up until this week, which she believes is due to personal things going on in her life. Pt reports she had tingling and numbness in L UE until having this surgery, which resulted in all L UE sx's being abolished. Pt reports sleep difficulty at this time secondary to pain. Pt is R hand dominant. 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 Pt reports no difficulty at this time with ADL's. Pt reports she is still limited with all overhead lifting activity at this time. Pt reports she does have difficulty with driving at this time secondary to limitations with cervical spine mobility. Pt reports her neck pain is 5/10 at rest, and increases to 7/10 at worst. Pain Neck pain: Pain Intensity (Out of 10): 5 Pain Intensity Range: 7 Objective Objective: Neuro: B UE sensation is WNL to light touch. B bicipital reflex= 1/3 Observation: Incision is fully healed. No signs of infection ROM: Cervical spine flex, ext, and B SB are moderately limited. All other planes are minimally limited. MMT: B UE's are rated at 4/5 throughout Balance/Special Test Scores Oswestry Neck Score: 18 Goals Goal 1:: Decrease cervical spine pain x 50% to aid with sleep Goal Time Frame: 6-8 Weeks Goal 2:: Increase c/s ROM x 1 grade in all planes to aid with driving Goal Time Frame: 6-8 Weeks Goal 3:: Increase B UE strength x 1 grade to aid with return to work without limitations Goal Time Frame: 6-8 Weeks Goal 4:: I with HEP Goal Time Frame: 6-8 Weeks Rehabilitation Potential Physical Therapy Diagnosis: Pt has neck pain, limited mobility, and B UE weakness secondary to cervical spine disc replacement. Rehabilitation Potential: Good Anticipated Interventions Patient/Client Instruction: Educate patient on: Condition and Plan of Care For the Purpose of:: To improve self management Therapeutic Exercise to Include: Strength training, Endurance training, Body mechanics, Postural training, Flexibilty training, Active ROM and Scapular Strength/Stabilization For the Purpose of:: To decrease pain, To increase ROM and To improve muscle performance and motor function Manual Therapy Techniques to Include: Soft tissue mobilization For the Purpose of:: To decrease pain and To increase ROM Text: Thank you for the opportunity to evaluate your patient. For Medicare and Medicare HMO plans, please review the plan of care and approve it. It will need to be FAXED BACK to us at [phone] for Medicare purposes. For Medicare only, by signing this I certify the plan of care. Please let me know if there are questions or concerns regarding this plan of care. Physician Signature: Date:
--- NOTE | 2025-01-12 15:07 | HP.PTDCNRP_ITS ---
Patient Information Patient Information: MAURIILO BEARD was seen in my office for initial evaluation on 09/26/24. The following Plan of Care was established for this patient: POC Established Initial Frequency: 2x /Week Initial Duration: 6-8 weeks Anticipated Interventions Patient/Client Instruction: Educate patient on: Condition and Plan of Care For the Purpose of:: To improve self management Therapeutic Exercise to Include: Strength training, Endurance training, Body mechanics, Postural training, Flexibilty training, Active ROM and Scapular S trength/Stabilization For the Purpose of:: To decrease pain, To increase ROM and To improve muscle performance and motor function Manual Therapy Techniques to Include: Soft tissue mobilization For the Purpose of:: To decrease pain and To increase ROM Last Seen Last Seen: This patient was last seen in our office . Pertinent comments regarding their Physical therapy will appear below: Pt has not returned for greater than 30 days and is discontinued at this time. At this point I will be discontinuing this patient from physical therapy. I would be happy to see this patient again in the future if found appropriate by the physician. Thank you! Theo Varma, PT, ATC Balance/Gait/Functional tests Balance/Special Test Scores Oswestry Neck Score: 18
== END 2024-10-21 19:00 | disposition home or self-care (01) ==
LOC: PT 12:00
PROVIDERS: PCP Registered Nurse; Referring Provider Student in an Organized Health Care Education/Training Program; Visit Provider Student in an Organized Health Care Education/Training Program
DX: Z98.890 Other specified postprocedural states (principal)
CPT/HCPCS: 97110; 97140; 97161

== ENCOUNTER 2025-02-18 11:36 | Emergency (ER) | payer OTHER, SELFPAY ==
[2025-02-18 11:37] VITALS: BP 143/110; PULSE 91; RESP 15; TEMP 36.8; O2SAT 99; BMI 29.0
--- NOTE | 2025-02-18 12:12 | EDS_ITS ---
HPI History of Present Illness Chief Complaint: Other, Pain/Inj PFSH PFSH Medical History Marijuana use Arthritis Restless legs Cervical spondylolysis Cervical spinal stenosis DDD (degenerative disc disease), cervical Adjacent segment disease Cervicogenic headache Bipolar 1 disorder Insulin resistance Hypothyroidism Polycystic ovary HTN (hypertension) Back problem Anxiety and depression Seasonal allergies Home Medications ?Medication ?Instructions ?Recorded ?Last Taken ?Type alprazolam 1 mg tablet (Xanax) 1 mg PO BID PRN PRN Anx iety 08/08/18 Unknown History desvenlafaxine 50 mg 50 mg PO QDAY 05/12/24 Unkno wn History tablet,extended release 24 hr lamotrigine 25 mg tablet (Lamictal) 25 mg PO QDAY 10/30 Unknown History gabapentin 600 mg tablet 600 mg PO TID PRN pain 08/1308/27/24 03:30 History lamotrigine 200 mg tablet 200 mg PO DAILY 08/13/24 Unk nown History methocarbamol 500 mg tablet 750 mg (1.5 x 500 mg) PO T ID PRN 09/18/24 Unknown Rx pain/spasms #30 tabs Allergy/AdvReac Type Severity Reaction Status Date / Time Dressing: Non-Medicated AdvReac Rash Verified 02/18/25 11:39 (bandaids) Family History Unknown Asthma Diabetes Hypertension High cholesterol hormone problems Surgical History (Updated 11/27/24 @ 13:19 by Stacey Mcdonald) Status post cervical disc replacement History of fusion of cervical spine Hx of neck surgery H/O oral surgery Social History Smoking Status: Never smoker alcohol intake: never substance use type: does not use EXAM Physical Exam Const Vital Signs: 02/18/25 11:36 02/18/25 11:37 Temperature 98.3 F Temperature Source Oral Pulse Rate 91 Respiratory Rate 15 Respiratory Effort Normal Non-Labored Respiratory Pattern Normal Blood Pressure 143/110 H Blood Pressure Mean 121 Pulse Ox 99 Oxygen Delivery Method Room Air MDM MDM MDM Narrative Medical decision making narrative: HISTORY OF PRESENT ILLNESS: Chief complaint: Neck pain 39-year-old female history of chronic neck pain, multiple neck surgeries, chronic fatigue and malaise, depression states she is having neck pain. She states this began [] REVIEW OF SYSTEMS: Pertinent positives: [Neck pain Pertinent negatives: [] PHYSICAL EXAM: Nursing triage notes reviewed, Vital signs reviewed Constitutional: please see mdm HENT: MMM Eyes: Pupils equal round and reactive to light, Extraocular muscles intact Neck: No stridor, no JVD, full neck ROM [] Lungs: Clear to auscultation, No wheezing or rales. No increased work of breathing, no conversational dyspnea, no accessory muscle use, no nasal flaring. No respiratory distress noted Heart: Regular rate and rhythm, No murmurs, No rubs and No gallops, 2+ distal pulses (radial, femoral, posterior tibial) in all extremities Abdomen: Soft, there is no tenderness, rigidity, rebound or guarding, no obvious peritoneal signs, no palpable pulsatile abdominal masses, no auscultated abdominal bruit : No CVAT Extremities: No edema Neuro: Intact 5/5 strength with ok sign (median), intact finger abduction (ulnar) intact wrist extension (radial n). Intact sensation in the radial, ulnar, and median nerve distributions. Skin: No rash or lesions noted MEDICAL DECISION MAKING: Chief Complaint: please see HPI External records reviewed: reviewed prior imaging studies: Reviewed x-ray of the cervical spine which shows anterior cervical disc fusion, intervertebral disc spacer. But no fracture or malalignment. Factors affecting care: n chronic neck pain Social determinants of health: None History obtained from others: none Consults: none [facility] Narrative: The patient was initially hemodynamically stable, afebrile and nontoxic- appearing I considered the following differential diagnosis: [] I obtained [] to further determine if the patient was suffering from a life- threatening etiology. [] ALL IMAGES (IF OBTAINED) HAVE BEEN PERSONALLY REVIEWED AND INTERPRETED BY MYSELF. [] The patient and/or family, caregivers express understanding. The patient and/or family, caregivers agrees with the plan. Shared decision making: I will have a discussion with the patient and or visitors regarding risk/benefits of further testing or admission. They will be made aware of of the risk/benefits inherent in this decision they will be given the opportunity to voice understanding. Total critical care time today provided was at least 0 [] minutes. This excludes separately billable procedures. Critical care time (if documented) is secondary to the patient having high probability of clinically significant/life threatening deterioration in the patient's condition which required my urgent intervention. Impression: [] Dispo: [] This note was generated with [employer] dictation software. It may contain incorrect words, spelling, and punctuation that were not noted in review of the chart prior to signing. Discharge Plan Triage Chief Complaint: Other, Pain/Inj ED Provider: Luis Reilly Dx/Rx/DC Orders Prescriptions: No Action lamotrigine [Lamictal] 25 mg tablet 25 mg PO QDAY desvenlafaxine 50 mg tablet extended release 24 hr 50 mg PO QDAY alprazolam [Xanax] 1 MG tablet 1 mg PO BID PRN PRN (Reason: Anxiety) lamotrigine 200 mg tablet 200 mg PO DAILY gabapentin 600 mg tablet 600 mg PO TID PRN (Reason: pain) methocarbamol 500 mg tablet 750 mg PO TID PRN (Reason: pain/spasms) Qty: 30 0RF Primary Care Provider: Deborah Hooper NP Referrals: Deborah Hooper NP, [facility] [Primary Care Provider] - Print Language: Yakut
--- NOTE | 2025-02-18 12:12 | EX.ED.GENINJ ---
HPI History of Present Illness Chief Complaint: Other, Pain/Inj PFSH PFSH Medical History Marijuana use Arthritis Restless legs Cervical spondylolysis Cervical spinal stenosis DDD (degenerative disc disease), cervical Adjacent segment disease Cervicogenic headache Bipolar 1 disorder Insulin resistance Hypothyroidism Polycystic ovary HTN (hypertension) Back problem Anxiety and depression Seasonal allergies Home Medications ?Medication ?Instructions ?Recorded ?Last Taken ?Type alprazolam 1 mg tablet (Xanax) 1 mg PO BID PRN PRN Anxiety 08/08/18 Unknown History desvenlafaxine 50 mg 50 mg PO QDAY 05/12/24 Unknown History tablet,extended release 24 hr lamotrigine 25 mg tablet (Lamictal) 25 mg PO QDAY 05/12/24 Unknown History gabapentin 600 mg tablet 600 mg PO TID PRN pain 08/13/24 08/27/24 03:30 History lamotrigine 200 mg tablet 200 mg PO DAILY 08/13/24 Unknown History methocarbamol 500 mg tablet 750 mg (1.5 x 500 mg) PO TID PRN 09/18/24 Unknown Rx pain/spasms #30 tabs prednisone 50 mg tablet 50 mg PO DAILY 5 days #5 tabs 02/18/25 Unknown Rx tizanidine 4 mg capsule 4 mg PO Q8H PRN muscle spasticity 02/18/25 Unknown Rx #20 caps Allergy/AdvReac Type Severity Reaction Status Date / Time Dressing: Non-Medicated AdvReac Rash Verified 02/18/25 11:39 (bandaids) Family History Unknown Asthma Diabetes Hypertension High cholesterol hormone problems Surgical History (Updated 11/27/24 @ 13:19 by Stacey Mcdonald) Status post cervical disc replacement History of fusion of cervical spine Hx of neck surgery H/O oral surgery Social History Smoking Status: Never smoker alcohol intake: never substance use type: does not use EXAM Physical Exam Const Vital Signs: 02/18/25 11:36 02/18/25 11:37 Temperature 98.3 F Temperature Source Oral Pulse Rate 91 Respiratory Rate 15 Respiratory Effort Normal Non-Labored Respiratory Pattern Normal Blood Pressure 143/110 H Blood Pressure Mean 121 Pulse Ox 99 Oxygen Delivery Method Room Air MDM MDM MDM Narrative Medical decision making narrative: HISTORY OF PRESENT ILLNESS: Chief complaint: Neck pain 39-year-old female history of chronic neck pain, multiple neck surgeries, chronic fatigue and malaise, depression states she is having neck pain. She states this began years ago when she had a fall followed by multiple neck surgeries. Over last several days gotten worse. No falls or trauma noted. No loss of movement sensation in the upper extremities. No difficulty breathing. REVIEW OF SYSTEMS: Pertinent positives: Neck pain Pertinent negatives: As per HPI PHYSICAL EXAM: Nursing triage notes reviewed, Vital signs reviewed Constitutional: please see [facility] HENT: MMM, no posterior oropharyngeal swelling, edema, exudates. Uvula midline. Eyes: Pupils equal round and reactive to light, Extraocular muscles intact Neck: No stridor, no JVD, painful neck range of motion with limited flexion extension, rotation and lateral bending. No obvious step-off deformities of cervical spine. No obvious lesions or rashes. Trachea midline. Neck is supple otherwise. No submandibular edema Lungs: Clear to auscultation, No wheezing or rales. No increased work of breathing, no conversational dyspnea, no accessory muscle use, no nasal flaring. No respiratory distress noted Heart: Regular rate and rhythm, No murmurs, No rubs and No gallops, 2+ distal pulses (radial, femoral, posterior tibial) in all extremities Neuro: Intact 5/5 strength with ok sign (median), intact finger abduction (ulnar) intact wrist extension (radial n). Intact sensation in the radial, ulnar, and median nerve distributions. Intact axillary nerve function Skin: No rash or lesions noted MEDICAL DECISION MAKING: Chief Complaint: please see [facility] External records reviewed: reviewed prior imaging studies: Reviewed x-ray of the cervical spine which shows anterior cervical disc fusion, intervertebral disc spacer. But no fracture or malalignment. Factors affecting care: n chronic neck pain Social determinants of health: None History obtained from others: none Consults: none [facility] Narrative: The patient was initially hemodynamically stable, afebrile and nontoxic-appearing. Exam without focal neurologic deficits I suspect the patient suffered from acute on chronic neck pain secondary to prior accident and multiple surgeries. There is no neurologic deficits, difficulty breathing to suggest severe spinal abnormalities. No fever or IV drug use to suggest epidural abscess. Patient has an MRI scheduled for next Omar. Encouraged to keep his appointment. Here gave her IM narcotics, muscle relaxers and steroids. The patient and/or family, caregivers express understanding. The patient and/or family, caregivers agrees with the plan. Shared decision making: I will have a discussion with the patient and or visitors regarding risk/benefits of further testing or admission. They will be made aware of of the risk/benefits inherent in this decision they will be given the opportunity to voice understanding. Total critical care time today provided was at least 0 minutes. This excludes separately billable procedures. Critical care time (if documented) is secondary to the patient having high probability of clinically significant/life threatening deterioration in the patient's condition which required my urgent intervention. Impression: 1. Acute on chronic back pain 2. History of neck surgery Dispo: Discharge home This note was generated with [employer] dictation software. It may contain incorrect words, spelling, and punctuation that were not noted in review of the chart prior to signing. Discharge Plan Triage Chief Complaint: Other, Pain/Inj ED Provider: Luis Reilly Dx/Rx/DC Orders Instructions: ED Chronic Pain Prescriptions: New prednisone 50 mg tablet 50 mg PO DAILY 5 Days Qty: 5 0RF tizanidine 4 mg capsule 4 mg PO Q8H PRN (Reason: muscle spasticity) Qty: 20 0RF No Action lamotrigine [Lamictal] 25 mg tablet 25 mg PO QDAY desvenlafaxine 50 mg tablet extended release 24 hr 50 mg PO QDAY alprazolam [Xanax] 1 MG tablet 1 mg PO BID PRN PRN (Reason: Anxiety) lamotrigine 200 mg tablet 200 mg PO DAILY gabapentin 600 mg tablet 600 mg PO TID PRN (Reason: pain) methocarbamol 500 mg tablet 750 mg PO TID PRN (Reason: pain/spasms) Qty: 30 0RF Stand Alone Forms: ED Work / School Excuse Primary Care Provider: Deborah Hooper NP Referrals: Deborah Hooper NP, [facility] [Primary Care Provider] - Activity Restrictions/Additional Instructions: Thank you for trusting us with your care today! Please take Tylenol (2 pills, 650 mg), ibuprofen (2 pills, 400 mg) every 6 hours as needed for pain and fever control. Please take prednisone as prescribed. Please use lidocaine patches Please take tizanidine as prescribed. Please return to the emergency department if your symptoms change or worsen. Specifically develop difficulty breathing, loss of movement or sensation in your arms. Please follow with your pain management operating surgeon for further outpatient evaluation and management. Print Language: Malay Disposition Disposition: Home, Self Care
[2025-02-18] MEDS: Lidocaine 5% Patch 1 PATCH TOPICAL (12:52)
[2025-02-18] MEDS: HYDROmorphone 0.5 MG/0.5 ML SYRINGE IM (12:52)
[2025-02-18 13:16] VITALS: BP 122/88; PULSE 68; RESP 18; TEMP 36.7; O2SAT 100
== END 2025-02-18 13:34 | disposition home or self-care (01) ==
PROVIDERS: Emergency Provider Emergency Medicine; PCP Registered Nurse; Visit Provider Emergency Medicine
DX: G89.29 Other chronic pain (principal); F31.9 Bipolar disorder, unspecified; F41.9 Anxiety disorder, unspecified; Z79.899 Other long term (current) drug therapy; M54.2 Cervicalgia; I10 Essential (primary) hypertension
CPT/HCPCS: 96372; 99282

== ENCOUNTER → 2025-02-26 | Outpatient (CLI) | payer OTHER, SELFPAY ==
--- NOTE | 2025-02-26 15:43 | MRI_ITS ---
PROCEDURE: SPINE CERVICAL (ROUTINE) 02/26/2025 REASON FOR EXAM: POST CERVICAL FUSION TECHNIQUE: SPINE CERVICAL (ROUTINE) Multiplanar and multisequence images were obtained without IV contrast administration. FINDINGS: Status post fusion and what is probably C5-6 with paramagnetic artifact. There is also disc arthroplasty at C6-7. Normal alignment. Normal craniovertebral junction. C2-3 is unremarkable. Small central disc bulge at C3-4 without cord compression. Mild canal narrowing. Mild canal narrowing also present at C4-5 from central annular bulging. At C5-6 prior fusion without recurrent central stenosis. Mild foraminal narrowing from small uncinate spurs. At C6-7, artifact obscures the majority of the spinal canal. C7-T1 is unremarkable MRI/Spine Cervical (Routine) IMPRESSION: Obscuration of the spinal canal on axial images at C6-7. Sagittal images appea r unremarkable. No recurrent pathology at C5-6. Mild canal narrowing at C3-4 and C4-5. Reading Location: [id number]
== END | disposition home or self-care (01) ==
LOC: MRI 15:29
PROVIDERS: PCP Registered Nurse; Referring Provider Anesthesiology; Visit Provider Anesthesiology
DX: M43.22 Fusion of spine, cervical region (principal)
CPT/HCPCS: 72141

== ENCOUNTER → 2025-03-04 | Outpatient (CLI) | payer OTHER, SELFPAY ==
[2025-03-04 14:03] LABS: Barbiturate Urine NEGATIVE (< 200 ng/mL); Benzodiazepine Urine PRESUMPTIVE POSITIVE (< 200 ng/mL); PCP Urine NEGATIVE (< 25 ng/mL); THC Urine NEGATIVE (< 50 ng/mL)
== END | disposition home or self-care (01) ==
LOC: LAB 11:41
PROVIDERS: PCP Registered Nurse; Referring Provider Anesthesiology; Visit Provider Anesthesiology
DX: F11.20 Opioid dependence, uncomplicated (principal)
CPT/HCPCS: 80307